=== PATIENT | female | born 1945 | race Caucasian/White ===

== ENCOUNTER 2022-02-25 08:32 | Outpatient (RCR) | payer MEDICARE, BC, SELFPAY ==
[2022-02-25 09:04] VITALS: BP 116/72; PULSE 60; RESP 16; TEMP 36.4; O2SAT 97
== END 2022-03-07 23:59 | disposition home or self-care (01) ==
LOC: CCIC 08:32
PROVIDERS: PCP Surgery; Visit Provider Clinical Nurse Specialist
DX: M06.9 Rheumatoid arthritis, unspecified (principal)
CPT/HCPCS: 96413; 96415; J7050

== ENCOUNTER 2022-08-16 21:11 | Emergency (ER) | payer MEDICARE, BC, SELFPAY ==
[2022-08-16 21:20] VITALS: BP 145/83; PULSE 73; RESP 18; TEMP 36.3; O2SAT 98; BMI 22.9
--- NOTE | 2022-08-16 22:08 | CRLHL7_ITS ---
For Patients: As a result of the Century Cures Act, medical imaging exams and procedure reports are released immediately into your electronic medical record. You may view this report before your referring provider. If you have questions, please contact your health care provider. DATE: 08/16/2022 CLINICAL HISTORY: Patient with dizziness and neck pain. TECHNIQUE: Standard helical CT image acquisition through the intracranial circulation following intravenous administration of contrast material with bolus tracking. Multiplanar reconstructed images were performed and interpreted. COMPARISON: CT same day. FINDINGS: There is no proximal intracranial large vessel occlusion. 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 The right middle cerebral artery and its branches are normal. The right anterior cerebral artery and its branches are normal. The left middle cerebral artery and its branches are normal. The left anterior cerebral artery and its branches are normal. The anterior communicating artery is well visualized and appears normal. The right vertebral artery and PICA are normal. The left vertebral artery and PICA are normal. The vertebral arteries are codominant. The basilar artery is patent and appears normal. The right posterior cerebral artery is normal. The left posterior cerebral artery is normal. The visualized venous structures are patent. IMPRESSION: 1. No proximal intracranial large vessel occlusion. 2. 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 Telehealth consultation with [facility]s Neurointerventional team for management of these aneurysms can be arranged by calling . Please note that all CT scans at this facility use dose modulation, iterative reconstruction, and/or weight-based dosing when appropriate to reduce radiation dose to as low as reasonably achievable. Dictated by Xavier Singh MD @ 08/17/2022 3:49:02 AM (Electronically Signed)
--- NOTE | 2022-08-16 22:08 | CRLHL7_ITS ---
For Patients: As a result of the Century Cures Act, medical imaging exams and procedure reports are released immediately into your electronic medical record. You may view this report before your referring provider. If you have questions, please contact your health care provider. INDICATION: Dizziness with neck pain. TECHNIQUE: CT head without contrast. COMPARISON: None. FINDINGS: CSF spaces: Within normal limits for age. Brain parenchyma and extra-axial spaces: The alston-white differentiation is normal. No sign of mass, hemorrhage, or midline shift. No extra-axial fluid collection. Skull base and calvarium: The visualized paranasal sinuses and mastoid air cells demonstrate no acute or significant findings. The visualized orbits are grossly unremarkable. No skull fractures. IMPRESSION: Unremarkable noncontrast head CT. No sign of ischemia or intracranial hemorrhage. Please note that all CT scans at this facility use dose modulation, iterative reconstruction, and/or weight-based dosing when appropriate to reduce radiation dose to as low as reasonably achievable. Dictated by Jose Enrique Cat MD @ 08/16/2022 11:27:33 PM (Electronically Signed)
--- NOTE | 2022-08-16 22:08 | CRLHL7_ITS ---
For Patients: As a result of the Century Cures Act, medical imaging exams and procedure reports are released immediately into your electronic medical record. You may view this report before your referring provider. If you have questions, please contact your health care provider. DATE: 08/16/2022 CLINICAL HISTORY: Patient with dizziness. TECHNIQUE: Standard helical CT image acquisition of the neck up to the skull base after bolus intravenous contrast enhancement. Multiplanar reconstructed images performed on a separate workstation. COMPARISON: CT same day. FINDINGS: The origins of the great vessels from the aortic arch are patent. The origin of the right vertebral artery is patent. The origin of the left vertebral artery is patent. The common carotid arteries are patent. There is no stenosis at the origin of the right internal carotid artery. There is no stenosis at the origin of the left internal carotid artery. The rest of the cervical segments of the internal carotid arteries are patent up to the skull base. The vertebral arteries are codominant. The cervical segments of the vertebral arteries are patent up to the skull base. The visualized intracranial vasculature is unremarkable. The visualized lung apices are unremarkable. The thyroid gland is unremarkable. The soft tissues of the neck are unremarkable. There are degenerative changes in the cervical spine. IMPRESSION: Normal CT angiogram of the neck. Please note that all CT scans at this facility use dose modulation, iterative reconstruction, and/or weight-based dosing when appropriate to reduce radiation dose to as low as reasonably achievable. Dictated by Xavier Singh MD @ 08/17/2022 3:51:11 AM (Electronically Signed)
[2022-08-16 22:16] LABS: PCR FLU A Negative PCR FLU A (Negative); PCR FLU B Negative PCR FLU B (Negative); PCR RSV Negative PCR RSV (Negative)
[2022-08-16] MEDS: 0.9 % SODIUM CHLORIDE 1000 ml 1,000 ML IV (22:21)
[2022-08-16 22:27] LABS: SARS PCR* Negative SARS-CoV-2 (Negative)
--- NOTE | 2022-08-16 22:38 | ED_ITS ---
HPI - General Adult General Chief complaint: Unspecified Complaint, Adult Stated complaint: light headed, trouble breathing Time Seen by Provider: 08/16/22 21:36 History of Present Illness HPI narrative: 76-year-old woman presenting to the emergency department accompanied by her daughter after lying down around 2 hours ago, lying down to bed on her back and then with sudden onset of dizziness. Eventually got up to the couch, walked there with everything spinning and managed to sit. With further clarification I am able to determine that dizziness was noticeably less when still. Symptoms lessened a great deal in about 30 minutes. Became rather sore at the base of her neck and remains so. Recounts that Mom with what sounds like cerebral hemorrhage; not clearly vertebral artery dissection or similar. Apparently had neck pain or headache. Feels that symptoms probably still worse to lay back; lessened at rest. No fever or cough or cold symptoms to proceed this. No trauma. No focal weakness. No complaint of headache more that base of neck pain. Has never had DVT or PE. Not really with chest pain. Visit initially a little complicated by Ms. Ivey being hard of hearing. Lowering my mask in conversation later helped a good deal. Related Data Home Medications Medication Instructions Recorded Confirmed albuterol sulfate 90 mcg/actuation 2 inh inhalation Q4H PRN 02/25/22 08/16/22 aerosol inhaler amoxicillin 500 mg capsule 2,000 mg PO DIRECTED 02/25/22 08/16/22 atorvastatin 40 mg tablet 40 mg PO DAILY 02/25/22 08/16/22 levothyroxine 88 mcg tablet 88 mcg PO DAILY 02/25/22 08/16/22 (Euthyrox) methotrexate sodium 2.5 mg tablet 22.5 mg PO DIRECTED 02/25/22 08/16/22 folic acid 1 mg tablet 08/16/22 Allergies Allergy/AdvReac Type Severity Reaction Status Date / Time oxycodone [From OxyContin] AdvReac Intermediate Vomiting Verified 08/16/22 23:20 Review of Systems Status of ROS: Reports: 10 or more systems reviewed and unremarkable except as noted in History and below [facility] Medical History Carpal tunnel syndrome Hypothyroid Malignant lung neoplasm Osteoporosis Surgical History S/P lobectomy of lung Social History Smoking Status: Former smoker Do you use any of these nicotine containing products: None Second hand tobacco smoke exposure: No How often do you have a drink containing alcohol: never How often do you have six or more drinks on one occasion: Never AUDIT-C Alcohol total score: 0 Non-prescribed substance use: denies use service: No Exam Narrative: Exam Narrative: Very pleasant. Laughs easily. NAD. Cranial nerves 2-12 are intact though hard of hearing. HINTS is normal. Only subtle dizziness perhaps when goes flat. Not reproducible to rotational head movement while upright. Breathing easily. Head looks to be atraumatic. Oropharynx is a little sticky. Neck is supple with strong and equal carotid upstroke. She is not really tender posterior midline neck but markedly so in the matthew cervical musculature low and into the medial trapezius musculature bilaterally. Lungs are clear but diminished breath sounds throughout the upper left chest. Heart is with a regular rhythm and rate. No murmur rub or gallop. Full strength throughout and well perfused. No extremity edema. No pain to palpation. No Homans. Const: Vital Signs, click to edit/add: Vital Signs - 24 hr 08/16/22 21:20 08/16/22 23:16 08/16/22 23:58 Temperature 97.4 F L Pulse Rate [Pulse Oximeter] 73 83 83 Respiratory Rate 18 16 16 Blood Pressure [Le ft Upper Arm] 145/83 H 128/68 139/58 L Pulse Oximetry 98 97 97 Oxygen Delivery Me thod Room Air Room Air Room Air 08/17/22 01:44 08/17/22 02:00 Temperature Pulse Rate [Pulse Oximeter] 72 Respiratory Rate 18 16 Blood Pressure [Le ft Upper Arm] 144/66 H 138/64 Pulse Oximetry 98 98 Oxygen Delivery Me thod Room Air Room Air Documenting provider has reviewed patient's vital signs: yes Course Vital Signs Vital signs: Initial Vital Signs Temperature 97.4 F L 08/16/22 21:20 Temperature Source Temporal Artery Scan 08/16/22 21:20 Pulse Rate 73 08/16/22 21:20 Pulse Rhythm 08/16/22 21:20 Respiratory Rate 18 08/16/22 21:20 Blood Pressure 145/83 H 08/16/22 21:20 Blood Pressure Mean 103 08/16/22 21:20 Pulse Oximetry 98 08/16/22 21:20 Oxygen Delivery Method 08/16/22 21:20 Vital Signs Temperature 97.4 F L 08/16/22 21:20 Pulse Rate 73 08/16/22 21:20 Respiratory Rate 18 08/16/22 21:20 Blood Pressure 145/83 H 08/16/22 21:20 Pulse Oximetry 98 08/16/22 21:20 Oxygen Delivery Method 08/16/22 21:20 Temperature 97.4 F L 08/16/22 21:20 Pulse Rate 72 08/17/22 01:44 Respiratory Rate 16 08/17/22 02:00 Blood Pressure 138/64 08/17/22 02:00 Pulse Oximetry 98 08/17/22 02:00 Oxygen Delivery Method 08/17/22 02:00 Medical Decision Making MDM Narrative Medical decision making narrative: Labs were reassuring. My initial understanding that this dizziness was fairly constant and not relieved at rest I think warrants CT imaging and vascular evaluation. Ordered for noncontrast head CT and CTA head and neck. I do not see evidence of bleed. Radiology over-read not noting any vascular anomaly within the limitations of study. This was a preliminary read interpretation that I discussed with on my call to Neurology on-call through [facility]. These images were sent up for review to on-call as well. Suspected to be peripheral process and unlikely central. Did review that dizziness symptoms abated at rest. During majority of time in the emergency department was symptom free and appeared to be ambulating easily multiple times to the bathroom. Final read of some of the imaging now available as below which I will convey to Ms. Ivey her daughter. IMPRESSION: 1. No proximal intracranial large vessel occlusion. 2. 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 Telehealth consultation with [facility]`s Neurointerventional team for management of these aneurysms can be arranged by calling . I have contacted above number and also reached Ms. Ivey. I am anticipating her calling back to Neuroradiology imminently to schedule follow-up appointment. Ms. Ivey clarifies at this time that her mother had an aneurysm as well. Lab Data Lab results reviewed: Yes I reviewed the patient's lab results Labs: Lab Results 08/16/22 08/16/22 08/16/22 Range/Units 21:25 22:06 22:20 WBC 7.30 (4.50-11.00) K/uL RBC 3.98 L (4.00-5.20) m/uL Hgb 12.9 (12.0-16.0) gm/dL Hct 38.3 (33.0-51.0) % MCV 96 (80-100) fL MCH 32 (26-34) pg MCHC 34 (32-36) gm/dL RDW Coeff of Chaparrita 14.4 (11.5-15.5) % Plt Count 203 (140-440) K/uL Neut % (Auto) 45.2 (42.0-72.0) % Lymph % (Auto) 41.4 (20-44) % Haralson % (Auto) 9.9 (0.0-11.0) % Eos % (Auto) 2.6 (0.0-7.0) % Baso % (Auto) 0.8 (0.0-3.0) % Neut # (Auto) 3.30 (1.7-7.0) K/uL Lymph # (Auto) 3.02 H (0.90-2.90) K/uL Haralson # (Auto) 0.70 (0.00-0.90) K/UL Eos # (Auto) 0.19 (0.00-0.50) K/uL Baso # (Auto) 0.06 (0.00-0.30) K/uL INR (0.91-1.10) APTT (23-33) Seconds Sodium (135-149) mmol/L Potassium (3.6-5.1) mmol/L Chloride (96-114) mmol/L Carbon Dioxide (20-32) mmol/L BUN (7-30) mg/dL Creatinine (0.5-1.5) mg/dL Estimated Creat Clear Estimated GFR ml/min Glucose (60-115) mg/dL Calcium (8.4-10.6) mg/dL Magnesium (1.5-2.6) mg/dL Total Bilirubin (0.1-1.5) mg/dL Direct Bilirubin (0.0-0.5) mg/dL AST (12-35) U/L ALT (4-35) U/L Alkaline Phosphatase (40-150) U/L Troponin I (0.01-0.04) ng/mL C-Reactive Protein (0.5-1.0) mg/dL NT-Pro-B Natriuret Pep pg/mL Total Protein (6.0-8.3) g/dL Albumin (3.3-5.0) g/dL SARS-CoV-2 (PCR) Negative SARS-CoV-2 (Negative) Influenza Type A (PCR) Negative PCR FLU A (Negative) Influenza Type B (PCR) Negative PCR FLU B (Negative) RSV (PCR) Negative PCR RSV (Negative) POC Troponin I 0.00 L (0.01-0.04) ng/ml 08/16/22 08/16/22 Range/Units 22:20 22:20 WBC (4.50-11.00) K/uL RBC (4.00-5.20) m/uL Hgb (12.0-16.0) gm/dL Hct (33.0-51.0) % MCV (80-100) fL MCH (26-34) pg MCHC (32-36) gm/dL RDW Coeff of Chaparrita (11.5-15.5) % Plt Count (140-440) K/uL Neut % (Auto) (42.0-72.0) % Lymph % (Auto) (20-44) % Haralson % (Auto) (0.0-11.0) % Eos % (Auto) (0.0-7.0) % Baso % (Auto) (0.0-3.0) % Neut # (Auto) (1.7-7.0) K/uL Lymph # (Auto) (0.90-2.90) K/uL Haralson # (Auto) (0.00-0.90) K/UL Eos # (Auto) (0.00-0.50) K/uL Baso # (Auto) (0.00-0.30) K/uL INR 0.98 (0.91-1.10) APTT 29 (23-33) Seconds Sodium 140 (135-149) mmol/L Potassium 3.6 (3.6-5.1) mmol/L Chloride 106 (96-114) mmol/L Carbon Dioxide 30 (20-32) mmol/L BUN 22 (7-30) mg/dL Creatinine 0.6 (0.5-1.5) mg/dL Estimated Creat Clear 39.04 Estimated GFR 94 ml/min Glucose 88 (60-115) mg/dL Calcium 9.5 (8.4-10.6) mg/dL Magnesium 2.0 (1.5-2.6) mg/dL Total Bilirubin 0.5 (0.1-1.5) mg/dL Direct Bilirubin 0.2 (0.0-0.5) mg/dL AST 38 H (12-35) U/L ALT 30 (4-35) U/L Alkaline Phosphatase 81 (40-150) U/L Troponin I < 0.01 L (0.01-0.04) ng/mL C-Reactive Protein < 0.5 L (0.5-1.0) mg/dL NT-Pro-B Natriuret Pep 170 pg/mL Total Protein 7.4 (6.0-8.3) g/dL Albumin 4.0 (3.3-5.0) g/dL SARS-CoV-2 (PCR) (Negative) Influenza Type A (PCR) (Negative) Influenza Type B (PCR) (Negative) RSV (PCR) (Negative) POC Troponin I (0.01-0.04) ng/ml ECG Data Attestation: I personally reviewed and interpreted this ECG as follows: (Normal sinus rate of 75) Discharge Plan Discharge Clinical Impression: Vertigo, Aneurysm of internal carotid artery Patient Disposition: Home w/ Parent or Adult Condition: Improved Additional Instructions: Stay well-hydrated. Take care in transitions, moving more slowly in the short term. Continue to take your aspirin at this time. Return for persistent recurrence of symptoms, new and focal weakness, visual changes. I know it can be difficult to get in to be seen nowadays; I would call tomorrow to set up a follow-up appointment ideally within the next week or 2 with your primary care provider. I spoke to Neurology on-call through [facility] this evening. Prescriptions: No Action albuterol sulfate 90 mcg/actuation HFA aerosol inhaler 2 inh INHALATION Q4H PRN Label Comments: INHALE 1 TO 2 PUFFS BY MOUTH EVERY 4 HOURS NEEDED amoxicillin 500 mg capsule 2,000 mg PO DIRECTED Label Comments: TAKE FOUR CAPSULES BY MOUTH ONE HOUR BEFORE APPOINTMENT atorvastatin 40 mg tablet 40 mg PO DAILY Label Comments: TAKE 1 TABLET BY MOUTH ONCE DAILY levothyroxine [Euthyrox] 88 mcg tablet 88 mcg PO DAILY Label Comments: TAKE 1 TABLET BY MOUTH BEFORE BREAKFAST methotrexate sodium 2.5 mg tablet 22.5 mg PO DIRECTED Label Comments: TAKE 9 TABLETS BY MOUTH ONCE A WEEK folic acid 1 mg tablet Label Comments: TAKE 2 TABLETS BY MOUTH IN THE MORNING Follow Up/Referrals: Paco Lynch MD [Primary Care Provider] - Stand Alone Forms: [employer] Info Instructions
[2022-08-16 22:40] LABS: Basophils Absolute Auto 0.06 K/uL (0.00-0.30); Basophils Percent Auto 0.8 % (0.0-3.0); Eosinophils Absolute Auto 0.19 K/uL (0.00-0.50); Eosinophils Percent Auto 2.6 % (0.0-7.0); Hematocrit 38.3 % (33.0-51.0); Hemoglobin* 12.9 gm/dL (12.0-16.0); Immature Granulocytes Abs Auto 0.01 K/uL (0.00-0.30); Immature Granulocytes Pct Auto 0.1 %; Lymphocytes Absolute Auto 3.02 K/uL (0.90-2.90); Lymphocytes Percent Auto 41.4 % (20-44); Mean Corpuscular HGB Conc 34 gm/dL (32-36); Mean Corpuscular Hemoglobin 32 pg (26-34); Mean Corpuscular Volume 96 fL (80-100); Monocytes Percent Auto 9.9 % (0.0-11.0); Neutrophils Percent Auto 45.2 % (42.0-72.0); Platelet Count* 203 K/uL (140-440); RDW Coefficient of Variation % 14.4 % (11.5-15.5); Red Blood Count 3.98 m/uL (4.00-5.20)
[2022-08-16 22:47] LABS: Slide Review Reflex No
[2022-08-16 23:14] LABS: Chloride* 106 mmol/L (96-114); Sodium* 140 mmol/L (135-149)
[2022-08-16 23:15] LABS: Potassium* 3.6 mmol/L (3.6-5.1)
[2022-08-16 23:16] VITALS: BP 128/68; PULSE 83; RESP 16; O2SAT 97
[2022-08-16 23:17] LABS: Bilirubin Direct* 0.2 mg/dL (0.0-0.5); Bilirubin Total* 0.5 mg/dL (0.1-1.5); Carbon Dioxide* 30 mmol/L (20-32); Creatinine* 0.6 mg/dL (0.5-1.5); Est. Creatinine Clearance* 39.04; Estimated Glomerular Filt Rate 94 ml/min; Total Protein* 7.4 g/dL (6.0-8.3)
[2022-08-16 23:18] LABS: Alanine Aminotransferase* 30 U/L (4-35); Alkaline Phosphatase* 81 U/L (40-150); Aspartate Amino Transferase* 38 U/L (12-35); Blood Urea Nitrogen* 22 mg/dL (7-30); Calcium* 9.5 mg/dL (8.4-10.6); Glucose* 88 mg/dL (60-115)
[2022-08-16 23:24] LABS: INR 0.98 (0.91-1.10); Partial Thromboplastin Time* 29 Seconds (23-33); Prothrombin Time 13.6 Seconds
[2022-08-16 23:41] LABS: C Reactive Protein* < 0.5 mg/dL (0.5-1.0); NT Pro B Type NatriureticPept* 170 pg/mL; Troponin I* < 0.01 ng/mL (0.01-0.04)
[2022-08-16 23:58] VITALS: BP 139/58; PULSE 83; RESP 16; O2SAT 97
[2022-08-17 01:44] VITALS: BP 144/66; PULSE 72; RESP 18; O2SAT 98
[2022-08-17 02:00] VITALS: BP 138/64; RESP 16; O2SAT 98
== END 2022-08-17 02:46 | disposition home or self-care (01) ==
PROVIDERS: Emergency Provider Family Medicine; PCP Surgery
DX: R42 Dizziness and giddiness (principal); I72.0 Aneurysm of carotid artery
CPT/HCPCS: 36415; 70450; 70496; 70498; 80048; 80076; 83735; 83880; 84484; 85025; 85610; 85730; 86140; 87502; 87634; 87635; 93005; 96360; 96361; 99284; 99285; J7030; Q9967

== ENCOUNTER 2022-10-07 08:30 | Outpatient (RCR) | payer MEDICARE, BC, SELFPAY ==
--- NOTE | 2022-04-15 12:27 | ONC.NURNOTE ---
Authorization: User: Elena Kamara Date: 09/09/21 11:26 Type: Eligibility Determination Note... Received request for prior auth for Infiximab([id number]). Prior auth is not required as services are based on medical necessity and follow medicare guidelines.
[2022-04-22 08:38] VITALS: BP 115/71; PULSE 67; RESP 16; TEMP 36.6; O2SAT 99
[2022-04-22] MEDS: diphenhydrAMINE 25 MG CAPSULE PO (08:50)
[2022-04-22] MEDS: ACETAMINOPHEN 325 MG TABLET 650 MG PO (08:50)
[2022-04-22] MEDS: 0.9 % SODIUM CHLORIDE 250 ml 250 ML 35 ML IV (09:26)
[2022-06-17 08:28] VITALS: BP 114/78; PULSE 81; RESP 16; TEMP 36.7; O2SAT 98
[2022-06-17] MEDS: diphenhydrAMINE 25 MG CAPSULE PO (08:42)
[2022-06-17] MEDS: ACETAMINOPHEN 325 MG TABLET 650 MG PO (08:42)
[2022-08-12 08:30] VITALS: BP 99/60; PULSE 93; RESP 16; TEMP 36.3; O2SAT 98
[2022-08-12] MEDS: diphenhydrAMINE 25 MG CAPSULE PO (08:40)
[2022-08-12] MEDS: ACETAMINOPHEN 325 MG TABLET 650 MG PO (08:40)
[2022-08-12] MEDS: 0.9 % SODIUM CHLORIDE 250 ml 250 ML 30 ML IV (08:53)
--- NOTE | 2022-08-24 12:51 | URNOTE ---
Request received for authorization for Infliximab ([id number]). Prior authorization is not required as services are based on medical necessity and follow Medicare guidelines.
[2022-09-21 13:10] VITALS: BP 112/67; PULSE 66; RESP 16; TEMP 36.9; O2SAT 97
[2022-09-21] MEDS: diphenhydrAMINE 25 MG CAPSULE PO (13:18)
[2022-09-21] MEDS: ACETAMINOPHEN 325 MG TABLET 650 MG PO (13:18)
== END 2022-10-19 23:59 | disposition home or self-care (01) ==
LOC: CCIC 08:30
PROVIDERS: PCP Surgery; Referring Provider Surgery; Visit Provider Clinical Nurse Specialist
DX: M06.9 Rheumatoid arthritis, unspecified (principal)
CPT/HCPCS: 96413; 96415; A9270; J7050

== ENCOUNTER 2023-03-11 09:30 | Outpatient (RCR) | payer MEDICARE, BC, SELFPAY ==
[2022-11-19 08:15] VITALS: BP 102/49; PULSE 66; RESP 16; TEMP 35.9; O2SAT 97
[2022-11-19] MEDS: ACETAMINOPHEN 325 MG TABLET 650 MG PO (08:25)
[2022-11-19] MEDS: diphenhydrAMINE 25 MG CAPSULE PO (08:25)
[2023-01-14 08:01] VITALS: BP 98/61; PULSE 63; RESP 16; TEMP 36.3; O2SAT 98
[2023-01-14] MEDS: ACETAMINOPHEN 325 MG TABLET 650 MG PO (08:18)
[2023-01-14] MEDS: diphenhydrAMINE 25 MG CAPSULE PO (08:19)
[2023-01-14] MEDS: 0.9 % SODIUM CHLORIDE 250 ml 250 ML 30 ML IV (08:24)
[2023-03-11 09:33] VITALS: BP 104/71; PULSE 66; RESP 16; TEMP 36.7; O2SAT 96
[2023-03-11] MEDS: ACETAMINOPHEN 325 MG TABLET 650 MG PO (10:04)
[2023-03-11] MEDS: diphenhydrAMINE 25 MG CAPSULE PO (10:04)
[2023-03-11 12:50] VITALS: BP 115/67; PULSE 66; RESP 16; TEMP 36.8; O2SAT 96
== END 2023-05-18 23:59 | disposition home or self-care (01) ==
LOC: CCIC 09:30
PROVIDERS: PCP Surgery; Referring Provider Surgery; Visit Provider Clinical Nurse Specialist
DX: M06.9 Rheumatoid arthritis, unspecified (principal)
CPT/HCPCS: 96413; 96415; A9270; J7050

== ENCOUNTER 2023-05-27 13:01 | Outpatient (CLI) | payer MEDICARE, BC, SELFPAY | END 2023-05-27 13:02 | disposition home or self-care (01) | LOC: NFLDREF 05-30 11:59 | PROVIDERS: PCP Surgery; Referring Provider Surgery; Visit Provider Physician Assistant | DX: R30.0 Dysuria (principal); N39.0 Urinary tract infection, site not specified | CPT/HCPCS: 87086 ==

== ENCOUNTER 2023-11-10 08:00 | Outpatient (RCR) | payer MEDICARE, BC, SELFPAY ==
[2023-05-19 11:00] VITALS: BP 111/69; PULSE 66; RESP 16; TEMP 36.2; O2SAT 98
[2023-05-19] MEDS: diphenhydrAMINE 25 MG CAPSULE PO (11:05)
[2023-05-19] MEDS: ACETAMINOPHEN 325 MG TABLET 650 MG PO (11:05)
[2023-05-19] MEDS: 0.9 % SODIUM CHLORIDE 250 ml 250 ML 35 ML IV (11:18)
[2023-07-14 08:06] VITALS: BP 113/69; PULSE 70; RESP 16; TEMP 36.6; O2SAT 99
[2023-07-14] MEDS: diphenhydrAMINE 25 MG CAPSULE PO (08:28)
[2023-07-14] MEDS: ACETAMINOPHEN 325 MG TABLET 650 MG PO (08:28)
[2023-07-14] MEDS: 0.9 % SODIUM CHLORIDE 250 ml 250 ML 35 ML IV (08:59)
--- NOTE | 2023-09-05 12:33 | ONC.NURNOTE ---
Addendum entered by Devora Chang RN 09/06/23 13:46: Dr. Lynch called office today asking for below explanation. He will write the orders since neonatal doctor will not write and send. Addendum entered by Devora Chang RN 09/06/23 12:19: Patient was notified of inability to find a provider to order her medication. She was instructed to let [facility] know if she has better luck with providers. Addendum entered by Devora Chang RN 09/06/23 10:07: PCP does not want to write orders for patient from Rheumatology note. [facility] staff reached out to [facility] to ask for order that will be signed by our staff. The office notes that they do not sports writer orders for outside infusion centers. They will not send their orders, or a recommendation letter either. Asked that they send last labs and consultation note to see if [facility] can find someone to write the orders. They will discuss with the provider to see if he is willing to do this. Original Note: Microbiology Technologist called for new orders fro [facility], also let [facility] know that we took her off the schedule on 09/08/2023. Will call and reschedule once we get her new order and P.A., [facility] is aware of this issue.
--- NOTE | 2023-09-08 10:25 | URNOTE ---
Request received for authorization for Infliximab ([id number]). Prior authorization is not required as services are based on medical necessity and follow Medicare guidelines.
[2023-09-15 08:55] VITALS: BP 133/58; PULSE 74; RESP 16; TEMP 36; O2SAT 98
[2023-09-15] MEDS: ACETAMINOPHEN 325 MG TABLET 650 MG PO (08:59)
[2023-09-15] MEDS: diphenhydrAMINE 25 MG CAPSULE PO (08:59)
[2023-09-15] MEDS: 0.9 % SODIUM CHLORIDE 250 ml 250 ML 35 ML IV (08:59)
[2023-11-10 08:03] VITALS: BP 118/61; PULSE 72; RESP 16; TEMP 35.9; O2SAT 97
[2023-11-10] MEDS: ACETAMINOPHEN 325 MG TABLET 650 MG PO (08:09)
[2023-11-10] MEDS: diphenhydrAMINE 25 MG CAPSULE PO (08:09)
[2023-11-10] MEDS: 0.9 % SODIUM CHLORIDE 250 ml 250 ML 35 ML IV (08:47)
== END 2023-11-15 23:59 | disposition home or self-care (01) ==
LOC: CCIC 08:00
PROVIDERS: PCP Surgery; Referring Provider Surgery; Visit Provider Clinical Nurse Specialist
DX: M06.9 Rheumatoid arthritis, unspecified (principal)
CPT/HCPCS: 96365; 96366; 96413; 96415; A9270; J7050

== ENCOUNTER 2024-01-28 15:35 | Emergency (ER) | payer MEDICARE, BC, SELFPAY ==
[2024-01-28 15:46] VITALS: BP 114/74; PULSE 68; RESP 16; TEMP 36.2; O2SAT 98; BMI 22.1
--- NOTE | 2024-01-28 16:01 | ED.GENADULT ---
HPI - General Adult General Chief complaint: Post Op Complication Stated complaint: Surgery on , would like to check for infection Time Seen by Provider: 01/28/24 15:37 History of Present Illness HPI narrative: [age] year white female with a finger that is postop about a month and has been reddened over the last couple of days, it is swollen over the PIP and D IP joint and the mid phalanx diffusely. She has been still in she had a comminuted fracture of her proximal phalanx and mid phalanx knuckle. She had been doing pretty well in the last couple days on see more reddened and swollen. She does have a lot of pain. Has not had fever, no chills. She is afebrile here today. She is up-to-date on her tetanus as of 2021. She had her surgery done at [facility] by a on the line a orthopedist. Related Data Home Medications ?Medication ?Instructions ?Recorded ?Confirmed atorvastatin 40 mg tablet 40 mg PO DAILY 02/25/22 01/28/24 levothyroxine 88 mcg tablet 88 mcg PO DAILY 02/25/22 01/28/24 (Euthyrox) methotrexate sodium 2.5 mg tablet 15 mg PO DIRECTED 02/25/22 01/28/24 folic acid 1 mg tablet 1 mg 08/16/22 05/27/23 aspirin 81 mg tablet,delayed 81 mg PO QDAY 05/27/23 01/28/24 release (Adult Low Dose Aspirin) Allergies Allergy/AdvReac Type Severity Reaction Status Date / Time oxycodone [From OxyContin] AdvReac Intermediate Vomiting Verified 01/28/24 15:46 Review of Systems Status of ROS: Reports: 6 or more systems reviewed and unremarkable except as noted in History and below [facility] Medical History Malignant lung neoplasm ?C34.90 - Malignant neoplasm of unspecified part of unspecified bronchus or lung (ICD-10) Carpal tunnel syndrome ?G56.00 - Carpal tunnel syndrome, unspecified upper limb (ICD-10) Osteoporosis ?M81.0 - Age-related osteoporosis without current pathological fracture (ICD-10) Hypothyroid ?E03.9 - Hypothyroidism, unspecified (ICD-10) Surgical History 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 - Acquired absence of lung [part of] (ICD-10) Social History Smoking Status: Former smoker Do you use any of these nicotine containing products: None Second hand tobacco smoke exposure: No How often do you have a drink containing alcohol: never How often do you have six or more drinks on one occasion: Never AUDIT-C Alcohol total score: 0 Non-prescribed substance use: denies use service: No Exam Narrative: Exam Narrative: Objective: The patient's vital signs look within normal limits She is alert or x3 no distress Her long finger that has the pins in place look swollen diffusely there is no drainage but there is erythema it is swollen from mid proximal phalanx to the did D IP joint area. There is no fluctuance that I can palpate she has got limited range of motion. This has been since the surgery. She had some Steri-Strips over the wound. There is no drainage as mention and no fluctuance. Const: Vital Signs, click to edit/add: Vital Signs - 24 hr 01/28/24 15:46 01/28/24 16:35 Temperature 97.1 F L Pulse Rate [Pulse Oximeter] 68 Respiratory Rate 16 20 Blood Pressure [Ri ght Upper Arm] 114/74 126/71 Pulse Oximetry 98 98 Oxygen Delivery Me thod Room Air Room Air Course Vital Signs Vital signs: Initial Vital Signs Temperature 97.1 F L 01/28/24 15:46 Temperature Source Temporal Artery Scan 01/28/24 15:46 Pulse Rate 68 01/28/24 15:46 Respiratory Rate 16 01/28/24 15:46 Blood Pressure 114/74 01/28/24 15:46 Blood Pressure Mean 87 01/28/24 15:46 Blood Pressure Position Sitting 01/28/24 15:46 Pulse Oximetry 98 01/28/24 15:46 Oxygen Delivery Method Room Air 01/28/24 15:46 Vital Signs Temperature 97.1 F L 01/28/24 15:46 Pulse Rate 68 01/28/24 15:46 Respiratory Rate 16 01/28/24 15:46 Blood Pressure 114/74 01/28/24 15:46 Pulse Oximetry 98 01/28/24 15:46 Oxygen Delivery Method Room Air 01/28/24 15:46 Temperature 97.1 F L 01/28/24 15:46 Pulse Rate 68 01/28/24 15:46 Respiratory Rate 20 01/28/24 16:35 Blood Pressure 126/71 01/28/24 16:35 Pulse Oximetry 98 01/28/24 16:35 Oxygen Delivery Method Room Air 01/28/24 16:35 Medications Administered Medications: Discontinued Medications Generic Name Dose Route Start Last Admin Trade Name Freshirley PRN Reason Stop Dose Admin Ceftriaxone Sodium 1 gm 01/28/24 15:57 01/28/24 16:14 Ceftriaxone 1 Gm Vial IM 01/28/24 15:58 1 gm ONCE ONE Administration Lidocaine HCl 2.1 ml 01/28/24 15:57 01/28/24 16:16 Lidocaine 1% 5 Ml (Pf) 5 Ml Vial IM 2.1 ml DIRECTED PRN Administration Pain Medical Decision Making MDM Narrative Medical decision making narrative: [age] white female with a finger infection postoperatively, patient still has pins in place. At this point however she has not been on antibiotics. She does appear to be up-to-date on tetanus as of 2021, she does not have what appears to be abscess or drainage. I think it be reasonable to cover with antibiotics and see if this would improve. I would recommend careful follow up though with and prompt follow-up with her orthopedic surgeon on Tuesday which is a day and a half from now to insure that the pins do not need to be removed and she does not need any further surgical treatment. And to ensure that the fingers improving with antibiotic care. Would give her Rocephin 1 g IM and then Augmentin 875 b.i.d. x7 days, and soak the finger were copiously in warm soapy water and are recheck with surgeon as described. She and her daughter were comfortable plan. Understands there may be additional treatments needed per surgeon. Again I do not think they have to do this immediately but given she has not been on antibiotics and this just started so I think a trial of antibiotic would be appropriate but may need pins removed other surgical treatments as described to the family . If the finger would look worse tomorrow or at any time start hurting, I would recommend they be seen by the orthopedic facility that did their surgery. There and agreement with that. Discharge Plan Discharge Clinical Impression: Finger infection Patient Disposition: Home w/ Parent or Adult Condition: Stable Additional Instructions: Warm soaks in soapy water 5 times a day, recommend antibiotic injection and oral antibiotic as prescribed. Recommend you see the surgeon within the next day, would recommend they be seen Tuesday. May need further surgical treatment if it is not improving. Activity Level: Light activity Discharge Diet: Regular Prescriptions: No Action aspirin [Adult Low Dose Aspirin] 81 mg tablet,delayed release (DR/EC) 81 mg PO QDAY atorvastatin 40 mg tablet 40 mg PO DAILY Patient Comments: TAKE 1 TABLET BY MOUTH ONCE DAILY levothyroxine [Euthyrox] 88 mcg tablet 88 mcg PO DAILY Patient Comments: TAKE 1 TABLET BY MOUTH BEFORE BREAKFAST methotrexate sodium 2.5 mg tablet 15 mg PO DIRECTED Patient Comments: TAKE 7 TABLETS BY MOUTH ONCE A WEEK folic acid 1 mg tablet 1 mg Patient Comments: TAKE 2 TABLETS BY MOUTH IN THE MORNING Follow Up/Referrals: Paco Lynch MD [Primary Care Provider] - Stand Alone Forms: [employer] Info Instructions
[2024-01-28] MEDS: cefTRIAXone 1 GM VIAL IM (16:14)
[2024-01-28] MEDS: LIDOCAINE 1% 5 ml (pf) 5 ML VIAL 2.1 ML IM (16:16)
[2024-01-28 16:35] VITALS: BP 126/71; RESP 20; O2SAT 98
== END 2024-01-28 16:35 | disposition home or self-care (01) ==
PROVIDERS: Emergency Provider Family Medicine; PCP Surgery
DX: T81.49XA Infection following a procedure, other surgical site, initial encounter (principal)
CPT/HCPCS: 96372; 99283; J0696

== ENCOUNTER 2024-02-19 13:58 | Emergency (ER) | payer MEDICARE, BC, SELFPAY ==
[2024-02-19 14:38] VITALS: BP 102/56; PULSE 70; RESP 20; TEMP 36.2; O2SAT 97
--- NOTE | 2024-02-19 15:28 | ED_ITS ---
HPI - General Adult General Chief complaint: Unspecified Complaint, Adult Stated complaint: L middle finger injury Time Seen by Provider: 02/19/24 14:00 History of Present Illness HPI narrative: Patient is a 78 year white female who had pins removed from her left long finger and had an I&D done with an infection after she had a fracture. She has done well she had sutures out this week and or last couple of days she has noticed increased redness again in her 5th finger. It is not as painful as it was before but it is red like it was infected. She has follow-up with OT on . She is up-to-date on tetanus. She is on methotrexate for rheumatoid arthritis. Related Data Home Medications ?Medication ?Instructions ?Recorded ?Confirmed atorvastatin 40 mg tablet 40 mg PO DAILY 02/25/22 01/28/24 levothyroxine 88 mcg tablet 88 mcg PO DAILY 02/25/22 01/28/24 (Euthyrox) methotrexate sodium 2.5 mg tablet 15 mg PO DIRECTED 02/25/22 01/28/24 folic acid 1 mg tablet 1 mg 08/16/22 05/27/23 aspirin 81 mg tablet,delayed 81 mg PO QDAY 05/27/23 01/28/24 release (Adult Low Dose Aspirin) Allergies Allergy/AdvReac Type Severity Reaction Status Date / Time oxycodone [From OxyContin] AdvReac Intermediate Vomiting Verified 01/28/24 15:46 Review of Systems Status of ROS: Reports: 6 or more systems reviewed and unremarkable except as noted in History and below [facility] Medical History Malignant lung neoplasm ?C34.90 - Malignant neoplasm of unspecified part of unspecified bronchus or lung (ICD-10) Carpal tunnel syndrome ?G56.00 - Carpal tunnel syndrome, unspecified upper limb (ICD-10) Osteoporosis ?M81.0 - Age-related osteoporosis without current pathological fracture (ICD- 10) Hypothyroid ?E03.9 - Hypothyroidism, unspecified (ICD-10) Surgical History 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 Distal CMS intact, range of motion is limited at the PIP joint. Const: Vital Signs, click to edit/add: Vital Signs - 24 hr 02/19/24 14:38 Temperature 97.2 F L Pulse Rate [Right Pulse Oximeter] 70 Respiratory Rate 20 Blood Pressure [Ri ght Upper Arm] 102/56 L Pulse Oximetry 97 Oxygen Delivery Me thod Room Air Course Vital Signs Vital signs: Initial Vital Signs Temperature 97.2 F L 02/19/24 14:38 Temperature Source Temporal Artery Scan 02/19/24 14:38 Pulse Rate 70 02/19/24 14:38 Respiratory Rate 20 02/19/24 14:38 Blood Pressure 102/56 L 02/19/24 14:38 Blood Pressure Mean 71 02/19/24 14:38 Blood Pressure Position Sitting 02/19/24 14:38 Pulse Oximetry 97 02/19/24 14:38 Oxygen Delivery Method Room Air 02/19/24 14:38 Vital Signs Temperature 97.2 F L 02/19/24 14:38 Pulse Rate 70 02/19/24 14:38 Respiratory Rate 20 02/19/24 14:38 Blood Pressure 102/56 L 02/19/24 14:38 Pulse Oximetry 97 02/19/24 14:38 Oxygen Delivery Method Room Air 02/19/24 14:38 Temperature 97.2 F L 02/19/24 14:38 Pulse Rate 70 02/19/24 14:38 Respiratory Rate 20 02/19/24 14:38 Blood Pressure 102/56 L 02/19/24 14:38 Pulse Oximetry 97 02/19/24 14:38 Oxygen Delivery Method Room Air 02/19/24 14:38 Medications Administered Medications: Discontinued Medications Generic Name Dose Route Start Last Admin Trade Name Freq PRN Reason Stop Dose Admin Ceftriaxone Sodium 500 mg 02/19/24 15:26 02/19/24 15:39 Ceftriaxone 500 Mg Vial IM 02/19/24 15:27 500 mg ONCE ONE Administration Lidocaine HCl 1 ml 02/19/24 15:26 02/19/24 15:39 Lidocaine 1% 5 Ml (Pf) 5 Ml Vial IM 1 ml DIRECTED PRN Administration Pain Medical Decision Making MDM Narrative Medical decision making narrative: [age] white female and methotrexate with mild immune suppression with recurrent finger infection. At this point it has only been a couple of days I think we can try injection Rocephin 500 IM and Augmentin 875 b.i.d. times 10 days, warm soaks in soapy water workup sponge with her hand. Recommend follow- up with orthopedic doctor next 2 3 days because of it is not improving may need I and D again. She and her daughter were comfortable plan. She reports she is up-to-date on tetanus. Augmentin dispensed out of in see med Discharge Plan Discharge Clinical Impression: Post-operative infection Patient Disposition: Home w/ Parent or Adult Condition: Stable Additional Instructions: Rocephin shot now, start Augmentin 875 b.i.d. times 10 days, recommend follow-up with orthopedic doctor within next 2-3 days for reassessment. Activity Level: Light activity Discharge Diet: Regular Prescriptions: No Action aspirin [Adult Low Dose Aspirin] 81 mg tablet,delayed release (DR/EC) 81 mg PO QDAY atorvastatin 40 mg tablet 40 mg PO DAILY Patient Comments: TAKE 1 TABLET BY MOUTH ONCE DAILY levothyroxine [Euthyrox] 88 mcg tablet 88 mcg PO DAILY Patient Comments: TAKE 1 TABLET BY MOUTH BEFORE BREAKFAST methotrexate sodium 2.5 mg tablet 15 mg PO DIRECTED Patient Comments: TAKE 7 TABLETS BY MOUTH ONCE A WEEK folic acid 1 mg tablet 1 mg Patient Comments: TAKE 2 TABLETS BY MOUTH IN THE MORNING Follow Up/Referrals: Paco Lynch MD [Primary Care Provider] - Stand Alone Forms: [employer] Info Instructions
[2024-02-19] MEDS: cefTRIAXone 500 MG VIAL IM (15:39)
[2024-02-19] MEDS: LIDOCAINE 1% 5 ml (pf) 5 ML VIAL 1 ML IM (15:39)
--- OUTSIDE RECORDS SUMMARY | 2024-02-19 15:40 | XMS_ITS | Clinical Summary ---
Author Organization [facility] Address [place], [place] [address] Care Team Providers Care Esthetic Dermatologist Name Role Phone Deangelo Heaton MD Unavailable [phone] Paco Lynch MD Primary Care Provider [phone] Osman Suarez MD Unavailable [phone] Allergies Active Allergy Reactions Criticality Noted Date Comments Oxycodone Vomiting 11/27/2021 Medications Medication Sig Dispensed Refills Start Date End Date Status multivitamin folic acid 0.4 mg Take 1 Tablet by mouth once daily. Contains 0.4 mg of Folic Acid. 0 7 Active methotrexate (RHEUMATREX) 2.5 mg tablet Take 15 mg by mouth once weekly. Takes on Fridays Patient is taking 6 tablets Active inFLIXimab (Remicade) 100 mg injectionIndicatio ns:Rheumatoid arthritis, involving unspecified site, unspecified whether rheumatoid factor present (HC) 200 mg q 8 weeks 20 mL 3 Active albuterol HFA (PRO-AIR; VENTOLIN; PROVENTIL) 90 mcg/actuation inhalerIndications :DEGROOT (dyspnea on exertion) Inhale 1 Puff by mouth every 4 hours if needed for Shortness Of Breath. 9 g 1 3 Active atorvastatin (LIPITOR) 40 mg tabletIndications: Hyperlipidemia, unspecified hyperlipidemia type Take 1 Tablet (40 mg) by mouth once daily. 90 Tablet 2 3 Active levothyroxine (SYNTHROID) 88 mcg tabletIndications: Acquired hypothyroidism Take 1 Tablet (88 mcg) by mouth before breakfast. 90 Tablet 3 4 Active acetaminophen (TYLENOL EXTRA STRGTH) 500 mg tablet Take 1,000 mg by mouth 3 times daily if needed. Max acetaminophen dose: 4000mg in 24 hrs. Active aspirin (ECOTRIN) 81 mg enteric coated tablet Take 81 mg by mouth once daily with a meal. Active calcium carbonate-cholecal ciferol, 600mg-200 units, (CALTRATE-600 + VIT D) tablet Take 2 Tablets by mouth once daily with a meal. Active folic acid 1 mg tablet Take 2 mg by mouth once daily. Active HYDROcodone-acetam inophen (5-325 mg/tablet)Indicati ons:Finger infection Take 1 Tablet by mouth every 6 hours if needed for Pain. Max acetaminophen dose: 4000 mg in 24 hrs. 12 Tablet 4 Active folic acid 1 mg tablet Take 2 mg by mouth once daily. 0 6 024 Discontinued( Pharmacist change per medication history (E-cancel not sent)) cholecalciferol, Vitamin D3, 2,000 unit tablet Take 2,000 units by mouth once daily. 024 Discontinued( Pharmacist change per medication history (E-cancel not sent)) calcium carbonate (OS-JEFFERSON 500) 500 mg calcium (1,250 mg) tablet Take 500 mg by mouth 2 times daily with meals. 024 Discontinued( Pharmacist change per medication history (E-cancel not sent)) acetaminophen (TYLENOL EXTRA STRGTH) 500 mg tabletIndications: Closed fracture of proximal end of left humerus with routine healing, unspecified fracture morphology, subsequent encounter Take 2 Tablets (1,000 mg) by mouth 3 times daily. Max acetaminophen dose: 4000mg in 24 hrs. 90 Tablet 2 024 Discontinued( Pharmacist change per medication history (E-cancel not sent)) aspirin (ECOTRIN) 81 mg enteric coated tabletIndications: Rheumatoid arthritis involving multiple sites with positive rheumatoid factor (HC),Chest pain at rest,Positive cardiac stress test,Mixed hyperlipidemia,Non -occlusive coronary artery disease Take 81 mg oral twice daily for 4 weeks, then back to the daily dosing 0 2 024 Discontinued( Pharmacist change per medication history (E-cancel not sent)) nitrofurantoin macrocrystaL (MACRODANTIN) 50 mg capsuleIndications :Recurrent UTI Take after intercourse to prevent bladder infections 30 Capsule 3 024 Discontinued( Pharmacist change per medication history (E-cancel not sent)) benzonatate (TESSALON) 100 mg capsuleIndications :Sinusitis, unspecified chronicity, unspecified location Take 1-2 Capsules (100-200 mg) by mouth 3 times daily if needed for Cough. 21 Capsule 3 024 Discontinued( Pharmacist change per medication history (E-cancel not sent)) amoxicillin (AMOXIL) 500 mg capsule TAKE FOUR CAPSULES BY MOUTH ONE HOUR BEFORE APPOINTMENT 3 024 Discontinued( *IP Discontinued) HYDROcodone-acetam inophen (5-325 mg/tablet)Indicati ons:Closed displaced fracture of middle phalanx of left middle finger, initial encounter Take 1 Tablet by mouth every 4 hours if needed for Pain. Max acetaminophen dose: 4000 mg in 24 hrs. 15 Tablet 4 024 Discontinued( Pharmacist change per medication history (E-cancel not sent)) doxycycline 100 mg capsuleIndications :Finger infection Take 1 Capsule (100 mg) by mouth two times daily for 10 days. 20 Capsule 4 024 Active Problems Problem Noted Date Diagnosed Date Wound infection after surgery 01/31/2024 Closed displaced fracture of middle phalanx of left middle finger 01/03/2024 Closed displaced fracture of right patella with routine healing 12/16/2021 S/p reverse total shoulder a rthroplasty, left shoulder, Biceps tenodesis 11/30/21 Dr. Romie Arellano 12/03/2021 Closed fracture of proximal end of left humerus with routine healing 11/27/2021 Hyperparathyroidism, unspecified 11/27/2021 Non-occlusive coronary artery disease 09/17/2020 Overview: Mild per angiogram 08/12/20 Positive cardiac stress test 08/05/2020 Mixed hyperlipidemia 08/05/2020 Family history of colon cancer 04/07/2016 Overview: Colonoscopy 03/2016 normal repeat in 5 years Cologuard negative 08/2021 Rheumatoid arthritis involvi ng multiple sites with positive rheumatoid factor 08/30/2008 Symptomatic menopausal or female climacteric sta ralph 07/19/2007 Malignant neoplasm of upper lobe of right lung 1 09/19/2006 Overview: 1998 - s/p thoracotomy and partial resection; Gets chest xray every 2 years to monitor Unspecified hypothyroidism 07/19/2007 Osteoporosis 05/08/2004 Overview: BONE MINERAL DENSITY 08/24/2010 at Rheumatology office. 08/25/2010 Bone mineral density done at Rheumatology office 04/04/2013 Resolved Problems Problem Noted Date Diagnosed Date Resolved Date Chest pain at rest 08/05/2020 3 Lung nodule 05/23/2020 08/17/2021 LBP radiating to left leg 08/11/2011 Unspecified gastritis and ga stroduodenitis without mention of hemorrhage 08/11/2011 08/14/2012 Family history of colonic polyps 08/22/2009 04/07/2016 Overview: Colonoscopy 08/2009 normal repeat in 5 years Routine general medical exam ination at a health care facility 07/19/2007 09/06/2016 Overview: flexible sigmoidoscopy 10/13/2000 BMD 05/2004 Screening for lipoid disorders 07/19/2007 09/06/2016 Encounters Date Type Department Care Team Description 02/16/2024 9:45 AM CDT Office Visit [facility] [address] [facility] [address] [place] [address] Elliot Andino MD Surgical Followup (S/P left middle finger, incision and drainage with infection to the level of the PIP joint and bone, DOS: 01/31/24 by Elliot Andino MD) 02/16/2024 Travel 02/03/2024 11:45 AM CDT Office Visit [facility] [address] [place] [address] Paco Lynch MD Follow Up (Broken middle finger on left hand) 02/03/2024 Travel 01/31/2024 1:31 PM CDT Anesthesia Event [address] [address] Evelyn Dallas MD Nye, Hoyt William, MD 01/31/2024 12:38 PM CDT - 01/31/2024 1:48 PM CDT Surgery [address] [address] Elliot Andino MD LEFT MIDDLE FINGER INCISION DRAINAGE WOUND 01/31/2024 11:05 AM CDT - 01/31/2024 2:56 PM CDT Hospital Encounter [address] [address] Elliot Andino MD Finger infection (Primary Dx) Discharge Disposition: Home Self Care 01/31/2024 Patient Outreach [facility] [address] [place] [address] Sandi Wilkerson, RN Primary RN Care Management; Hospital F/U ([facility] 73) 01/30/2024 Travel 01/30/2024 Transcribe Orders [address] [address] Elliot Andino MD 01/29/2024 10:14 AM CDT - 01/30/2024 2:25 PM CDT Hospital Encounter [address] [address] Diane Hernandez MD Smock, Patrick Hunter, MD [facility], Hospitalist [facility] [place] infection (Primary Dx) Discharge Disposition: Home Self Care 01/29/2024 Travel 01/28/[address] [address] Elliot Andino MD Appointment Request (MIDDLE FINGER LEFT HAND INFECTION ) 01/24/2024 9:23 AM CDT - 01/24/2024 11:59 PM CDT Hospital Encounter [address] [address] Kelly Polk, PA Елена Espinosa, OT Closed displaced fracture of middle phalanx of left middle finger, initial encounter 01/24/2024 Travel 01/20/2024 Telephone [facility] [address] [place] [address] Kelly Polk PA Appointment Request 01/19/2024 1:00 PM CDT Office Visit [facility] [address] [facility] [address] [place] [address] Kelly Polk PA Post-op (s/p left middle finger fracture ORIF by Dr. Andino on 01/06/24) 01/19/2024 Travel 01/03/2024 1:45 PM CDT - 01/03/2024 3:15 PM CDT Surgery [address] [address] Elliot Andino MD LEFT MIDDLE FINGER PIP FRACTURE CLOSED REDUCTION PINNING FINGER 01/03/2024 1:42 PM CDT Anesthesia Event [address] [address] Nick An MD Nye, Jerome Awad MD 01/03/2024 10:56 AM CDT - 01/03/2024 3:10 PM CDT Hospital Encounter [address] [address] Elliot Andino MD Closed displaced fracture of middle phalanx of left middle finger, initial encounter (Primary Dx) Discharge Disposition: Home Self Care 01/03/2024 Travel 12/30/2023 10:05 AM CDT Preop Visit [facility] [address] [place] [address] Paco Lynch MD Preoperative Exam (Closed displaced fracture of middle phalanx of left middle finger 01/03/24 at [facility] [place] Dr. 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) 12/29/2023 Transcribe Orders [facility] [address] [facility] [address] [place] [address] Elliot Andino MD 12/29/2023 Telephone [facility] [address] [place] [address] Paco Lynch MD Appointment Request (pre-op exam) 12/29/2023 Telephone [facility] [address] [facility] [address] [place] [address] Elliot Andino MD Error-please disregard (/) 12/29/2023 Travel 12/22/2023 11:30 AM CDT Office Visit [facility] [address] [place] [address] Munir Dye PA Consult (left 3rd finger) 12/22/2023 11:20 AM CDT Ancillary Procedure [facility] [address] [place] [address] 12/22/2023 Telephone [facility] [address] [place] [address] Munir Dye PA Appointment 12/22/2023 Travel 12/19/2023 Telephone [facility] [address] [place] [address] Paco Lynch MD Follow up 12/17/23 12/19/2023 Telephone [facility] [address] [facility] [address] [place] [address] Zoe Campos RN Referral 12/17/2023 3:55 PM CDT Ancillary Procedure [address] [place] [address] 12/17/2023 3:40 PM CDT Office Visit [facility] [address] [place], [place] [address] [address] Levy Ferrara PA Finger Injury ([place] last evening injuring left middle finger. Bruised and swollen. Robert taped until today. ) 12/17/2023 Travel 12/02/2023 1:50 PM CDT Office Visit [facility] [address] [facility] [address] [facility] [address] [place] [address] Osman Suarez MD Follow Up 12/02/2023 Travel from Last 3 Months Immunizations Name Administration Dates Next Due COVID-19 vaccine (PeerJ NTVocalZoom 30mcg/0.3mL) PFMDV 05/22/2021 Influenza A (H1N1), Inactivated 07/24/2009 Influenza A (H1N1), Inactiva aiyana (Age >=3 Years) 07/24/2009 Influenza, IIV3 (Age 6-35 mos) 07/24/2009 Influenza, IIV3 (Age >=3 years) 07/11/20 12,08/11/2011,07/28/2010,2008,07/22/2008,07/19/2007,06/20/2006,1 08/10/2004 Influenza, Inactivated AIIV4 (Age 65+ Years) Preserv Free 08/23/2023,05/22/2021,05/13/2020 Influenza, Inactivated IIV3 (Age 65+ Years) Preserv Free 04/17/2019 Pneumococcal Poly,23-Valent (Pneumovax) 02/24/2016,06/10/2005 Pneumococcal conj 13-Valent (Prevnar 13) 11/25/2014 Td (Age >=7 Years) 05/12/2004 Tdap 11/24/2021,07/11/2012 Zoster (Shingrix-RZV, recombinant) 08/22/2018,,09/19/2017 Zoster (Zostavax-ZVL, live) 07/11/2012 Family History Medical History Relation Name Comments Diabetes Brother 2 Ramiro Heart Disease Brother 2 Ramiro Hypertension Brother 2 Ramiro 71 yo [place] 2007 Heart attack Brother 3 Bill Hypertension Mother Alana Cancer-colon Sister 1 Jenn Thyroid Disease Sister 1 Jenn Thyroid Disease Sister 2 Sheba Thyroid Disease Sister 3 Meseret Thyroid Disease Sister 4 Rain Anesthesia Malignant Hyperthermia No Family History Anesthesia Problem No Family History Blood Disease No Family History Cancer-breast No Family History Cancer-ovarian No Family History Relation Name Status Comments Brother 1 Jairo (Age 17) MVA Brother 2 Ramiro (Age 60s) Heart Att ack? Brother 3 Bill Brother 4 Juanito Alive Brother 5 Skip Alive Brother 6 Micah Alive Brother 7 Jori Alive Father Jarrell (Age 72) Mother Alana (Age 51) Sister 1 Jenn Alive Sister 2 Sheba Alive Sister 3 Meseret Alive Sister 4 Rain Alive Social History Tobacco Use Types Packs/Day Years Used Date Smoking Tobacco: Former Cigarettes Q uit: 05/08/1998 Smokeless Tobacco: Never Tobacco Cessation:Counseling Given: Not Answered Alcohol Use Standard Drinks/Week Comments No 0 (1 standard drink = 0.6 oz pur e alcohol) PHQ-2 Answer Date Recorded PHQ-2 TOTAL SCORE 0 03/28/2023 Social Connections Answer Date Recorded Frequency of Communication with Friends and Fami ly 0 08/23/2023 Financial Resource Strain Answer Date R ecorded Difficulty of Paying Living Expenses 3 08/23/2023 Difficulty of Paying Living Expenses Not on file 08/23/2023 Food Insecurity Answer Date Recorded Worried About Running Out of Food in the Last Ye ar 1 08/23/2023 Transportation Needs Answer Date Record ed Lack of Transportation (Medical) 1 08/23/2023 Housing Stability Answer Date Recorded Unable to Pay for Housing in the Last Year 1 08/23/2023 Sex and Gender Information Value Date Recorded Sex Assigned at Not on file Gender Identity Not on file Sexual Orientation Not on file Obstetrics History Para Term AB IAB SAB Ectopic Multiple Livin g Live Births 3 3 3 Date Outcome GA Total Labor Labor/2nd/3rd Weight Sex Type Anes PTL Antonia A1 A5 Name Clin Para Para Para Last Filed Vital Signs Vital Sign Reading Time Taken Comments Blood Pressure 117/79 02/03/2024 11:47 AM CDT Pulse 63 02/03/2024 11:47 AM CDT Temperature 36.6 ??C (97.8 ??F) 01/31/2024 2:15 PM CD T Respiratory Rate 18 01/31/2024 2:51 PM CDT Oxygen Saturation 99% 02/03/2024 11:47 AM CDT Inhaled Oxygen Concentration - - Weight 61.8 kg (136 lb 4.8 oz) 02/03/2024 11:47 AM CDT Height 160 cm (5' 3) 01/31/2024 11:30 AM CDT Body Mass Index 24.14 01/31/2024 11:30 AM CDT Plan of Treatment Upcoming Encounters Date Type Department Care Team (Late st Contact Info) Description 02/21/2024 1:45 PM CDT Appointment [address] [place] [address] Елена Espinosa, OT [address] [facility] [place] [address] 02/28/2024 9:30 AM CDT Appointment [address] [place] [address] Елена Espinosa, OT [address] [place] [address] [place] [address] 03/06/2024 9:30 AM CDT Appointment [address] [place] [address] Jesús Елена A, OT 35 [facility] [place] [address] 03/13/2024 9:30 AM CDT Appointment [address] [address] Jesús Елена A, OT [address] [place] [address] [place] [address] 04/10/2024 10:00 AM CDT Office [place] [facility] [address] [facility] [address] [place] [address] Douglas Valentine MD [address] [facility] [address] [place] [address] Health Maintenance Due Date Last Done Comments COVID-19 vaccine series (2022-24 season) 2023 05/22/2021, 2020, 10/10/2020 BMI (ht and wt on same day) for age 18+ 03/28/2024 03/28/2023, 08/17/2021, 12/11/2020, Additional history exists Depression screening for age 12+ 03/28/2024 03/28/2023, 08/18/2021, 08/17/2021, Additional history exists Medicare Wellness for age 65+ 03/28/2024, 08/17/2021, 05/13/2020, Additional history exists Influenza for age 65+ 04/08/2024 08/23/2023 , 05/22/2021, 05/13/2020, Additional history exists Tetanus booster 11/25/2031 11/24/2021, 11/2011, 05/12/2004 Hepatitis C screening for ag e 18-79 Completed 08/30/2008 Pneumococcal series for age 65+ Completed 02/24/2016, 11/25/2014, 06/10/2005 Zoster (shingles) series for age 50+ Completed 08/22/2018, 05/06/2018, 09/19/2017, Additional history exists DEXA/DXA scan for age 65+ Completed 2019, 08/13/2015, 04/03/2013, Additional history exists Fecal testing sDNA-FIT (Cologuard) for age 45-75 Discontinued 08/24/2021 Tdap Completed 11/24/2021, 07/11/2012 Medical Devices Implanted Type Area Design Editor Device Identifier Shelf Expiration Date Model / Serial / Lot Fxbridge Tuberosity Repair System Implanted:Qty: 2 on 11/30/2021 by Romie Arellano MD at [facility] Left: Shoulder 06/07/2028 AR-[id number] / / [id number] Description:FXBRIDGE TUBEROS ITY REPAIR SYSTEM Humeral Insert Comb Mod Glenoid Sys Implanted:Qty: 1 on 11/30/2021 by Romie Arellano MD at [facility] Left: Shoulder 04/07/2024 AR-9503-3 633-3 / [id number] Description:HUMERAL INSERT C OMB MOD GLENOID SYS Screw Locking 5.5 X 36 Implanted:Qty: 1 on 11/30/2021 by Romie Arellano MD at [facility] Left: Shoulder AR-9563-3 6 / / Description:SCREW LOCKING 5. 5 X 36 Screw Modular 30mm Implanted:Qty: 1 on 11/30/2021 by Romie Arellano MD at [facility] Left: Shoulder AR-9561-3 0S / / [id number] Description:SCREW MODULAR 30 MM Baseplate Modular 24mm Implanted:Qty: 1 on 11/30/2021 by Romie Arellano MD at [facility] Left: Shoulder AR-9560-2 4-2 88 Description:BASEPLATE MODULA R 24MM Screw Locking 5.5 X 32 Implanted:Qty: 1 on 11/30/2021 by Romie Arellano MD at [facility] Left: Shoulder 06/07/2026 AR-9563-3 2 / / [id number] Description:SCREW LOCKING 5. 5 X 32 Fiber Tape Cerclage 12mm Tigerlink Implanted:Qty: 1 on 11/30/2021 by Romie Arellano MD at [facility] Left: Shoulder [id number] / / [id number] Description:FIBER TAPE CERCL AGE 12MM TIGERLINK Modular Glenoid Sys, Glenosphere 33/24 Implanted:Qty: 1 on 11/30/2021 by Romie Arellano MD at [facility] Left: Shoulder 08/07/2024 AR-9564-2 433 / / [id number] Description:MODULAR GLENOID SYS, GLENOSPHERE 33/24 Shoulder Impl Suture Cup 36 Neutral Implanted:Qty: 1 on 11/30/2021 by Romie Arellano MD at [facility] Left: Shoulder 03/07/2026 [id number]- 36CPC / / [id number] Description:SHOULDER IMPL WHITTEN TURE CUP 36 NEUTRAL Humeral Stem Univers Revers Implanted:Qty: 1 on 11/30/2021 by Romie Arellano MD at [facility] Left: Shoulder 08/07/2025 AR-9501-0 9P / / [id number] Description:HUMERAL STEM UNI VERS REVERS K-Wire [id number] Dbl Trocar Smooth - [id number] Implanted:Qty: 2 on 01/03/2024 by Elliot Andino MD at [facility] [employer] [facility] [id number] / / Description:Load [id number] Procedures Procedure Name Priority Date/Time Associated Diagnosis Comments AEROBIC BACTERIAL CULTURE, STAIN Today 01/31/2024 1:55 PM CDT ANAEROBIC CULTURE Today 01/31/2024 1:5 5 PM CDT DEBRIDEMENT WOUND Class E Urgent 01/31/2024 1:2 1 PM CDT Pain of left middle finger Case Notes 30 MINS- SWING SUPINEHAND TABLEHAND TRAY PA TO ASSIST Special Needs 5 ft 3 in, 60.3 kg, BMI 23.56Pt will be D/C today 01/29 ~ 1430 WHITE BLOOD COUNT Early AM 01/30/2024 11:21 AM CDT CREATININE Early AM 01/30/2024 8:56 AM CDT POTASSIUM Early AM 01/30/2024 8:56 AM CDT BODY FLUID CULTURE,STAIN (AEROBIC) STAT 01/29/2024 2:19 PM CDT CBC WITH AUTO DIFFERENTIAL STAT 01/29/2024 11:04 AM CDT CBC WITH AUTO DIFFERENTIAL STAT 01/29/2024 11:04 AM CDT BASIC METABOLIC PANEL STAT 01/29/2024 11:04 AM CDT XR FINGER 3 VIEWS LEFT STAT 01/29/2024 10:57 AM CDT XR C-ARM GREATER 1 HR Routine 01/03/2024 2:50 PM CDT MI OPEN TX ARTICULAR FRACTURE MCP/IP JOINT EA Class E Urgent 01/03/2024 1:26 PM CDT Closed displaced fracture of middle phalanx of left middle finger, initial encounter Case Notes 60 MIN SWING HAND TABLE, HAND TRAY; MINI C-ARM; K-WIRE; K-WIRE S3B 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; DRILL;ARTHREX MINI CFS HAND SET (AVAILABLE - NOT OPEN) Special Needs 5ft2in 61.1kg 24.64 BMIASA Last dose 12-30-23 BEDSIDE US STUDY ARCHIVE Preop 01/03/2024 11:13 AM CDT XR FINGER 3 VIEWS LEFT Routine 12/22/2023 11:25 AM CDT Pain of left middle finger XR FINGER 3 VIEWS LEFT CALEB 12/17/2023 3:55 PM CDT Pain of middle finger T4,FREE Routine 12/02/2023 2:26 PM CDT Postinfectious hypothyroidism TSH Routine 12/02/2023 2:26 PM CDT Postinfectious hypothyroidism FECAL DNA (AKA COLOGUARD) Routine 08/24/2021 12:00 AM DESKTOP ARCHITECT Screening for colon cancer SCAN-BONE DENSITOMETRY DEXA 05/15/2020 12:00 AM CDT ACUTE HEPATITIS PANEL Routine 08/30/2008 3:59 PM DESKTOP ARCHITECT Rheumatoid Arthritis (HC) from Last 3 Months or Most Recently Relevant to Health Maintenance Results * AEROBIC BACTERIAL CULTURE, STAIN (01/31/2024 1:55 PM CDT) CULTURE No Growth. 02/03/2024 8:01 AM CDT [facility] GRAM STAIN 1+ PMNs 02/03/2024 8:[address] [facility] GRAM STAIN No Epithelial cells 02/03/2024 8:[address] [facility] GRAM STAIN No RBCs 02/03/2024 8:[address] [facility] GRAM STAIN No organisms seen 02/03/2024 8:[address] [facility] GRAM STAIN Gram stain performed by [place], [place] 02/03/2024 8:[address] [facility] Swab (Other) Non-Blood / Unknown 01/31/2024 1:55 PM CDT 01/31/2024 3:47 PM CDT Elliot Andino MD MICROBIOLOGY Performing Organization Address City/[facility]/ZIP Co de Phone Number [facility] [address] [address], [facility] SENDOUT INTERNAL ZIP [phone] [place] [id number] * ANAEROBIC CULTURE (01/31/2024 1:55 PM CDT) CULTURE No anaerobes isolated 02/06/2024 11:07 AM CDT [facility] Swab (Other) Non-Blood / Unknown 01/31/2024 1:55 PM CDT 01/31/2024 3:47 PM CDT Elliot Andino MD MICROBIOLOGY Performing Organization Address [facility] Co de Phone Number [facility] [address] [address], * WHITE BLOOD COUNT (01/30/2024 11:21 AM CDT) WHITE BLOOD COUNT 6.2 4.5 - 11.0 thou/cu mm 01/30/2024 11:[address] [facility] NRBC 0.0 % 01/30/2024 11:[address] [facility] ABS NRBC 0.0 thou /cu mm 01/30/2024 11:[address] [facility] Blood BLOOD SPECIMEN / Unknown Venipuncture / Unknown 01/30/2024 11:21 AM CDT 01/30/2024 11:23 AM CDT Xiao Cr MD HEMATOLOGY Performing Organization Address City/[facility]/ZIP Co de Phone Number [facility] SENDOUT INTERNAL ZIP [address] [address] [place] [address] * POTASSIUM (01/30/2024 8:56 AM CDT) POTASSIUM 3.9 3.5 - 5.1 mmol/L 01/30/2024 10:[address] [facility] Blood BLOOD SPECIMEN / Unknown Venipuncture / Unknown 01/30/2024 8:56 AM CDT 01/30/2024 9:35 AM CDT Xiao Cr MD CHEMISTRY [facility] SENDOUT INTERNAL ZIP [address] [place] [id number] * CREATININE (01/30/2024 8:56 AM CDT) Pathologist [facility] eGFR >90 >90 mL/min/1.7 3m2 01/30/2024 10:[address] [facility] Comment:As of 2021, eG FR is calculated by the CKD-EPI creatinine equation without race adjustment. ??eGFR can be influenced by muscle mass, exercise, and diet. ??The reported eGFR is an estimation only and is only applicable if the renal function is stable. CREATININE 0.53 0.50 - 0.90 mg/dL 01/30/2024 10:[address] [facility] Blood BLOOD SPECIMEN / Unknown Venipuncture / Unknown 01/30/2024 8:56 AM CDT 01/30/2024 9:35 AM CDT Xiao Cr MD CHEMISTRY [facility] SENDOUT [place]IP [id number] [address] [place] [address] * (ABNORMAL) BODY FLUID CULTURE,STAIN (AEROBIC) (01/29/2024 2:19 PM CDT) Pathologist [facility] CULTURE RESULT(A) 02/01/2024 7:47 AM CDT [facility] CULTURE 1+ Staphylococcus aureus 02/01/2024 7:47 AM CDT [facility] GRAM STAIN 1+ Epithelial cells(A) 02/01/2024 7:[address] [facility] GRAM STAIN 4+ RBCs(A) 02/01/2024 7:[address] [facility] GRAM STAIN 1+ WBC(A) 02/01/2024 7:[address] [facility] GRAM STAIN 1+ Gram Positive Cocci(A) 02/01/2024 7:[address] [facility] GRAM STAIN Gram stain performed by [place], [place](A) 02/01/2024 7:[address] [facility] Body Fluid (Left 3rd Finger) Non-Blood / Unknown 01/29/2024 2:19 PM CDT 01/29/2024 2:23 PM CDT Narrative Organism Antibiotic Method Susceptibility Staphylococcus aureus OXACILLIN 0.5: S Comment:Oxacillin whitten sceptible should not be interpreted as penicillin or amoxicillin susceptible. Staphylococcus aureus CLINDAMYCIN 0.25: S Staphylococcus aureus DOXYCYCLINE <=0.5: S Staphylococcus aureus CEFAZOLIN S Staphylococcus aureus TRIMETHOPRIM/SULF <=0.5/9.5: S Diane Hernandez MD MICROBIOLOGY [facility] [address] [place] [address], [facility] SENDOUT INTERNAL ZIP [phone] [place] [address] * CBC WITH AUTO DIFFERENTIAL (01/29/2024 11:04 AM CDT) WHITE BLOOD COUNT 6.7 4.5 - 11.0 thou/cu mm 01/29/2024 11:[address] [facility] RED BLOOD COUNT 4.01 4.00 - 5.20 mil/cu mm 01/29/2024 11:[address] [facility] HEMOGLOBIN 12.7 12.0 - 16.0 g/dL 01/29/2024 11:[address] [facility] HEMATOCRIT 37.1 33.0 - 51.0 % 01/29/2024 11:[address] [facility] MCV 93 80 - 100 fL 01/29/2024 11:[address] [facility] MCH 31.7 26.0 - 34.0 pg 01/29/2024 11:13 AM [facility] MCHC 34.2 32.0 - 36.0 g/dL 01/29/2024 11:13 AM [facility] RDW 15.1 11.5 - 15.5 % 01/29/2024 11:13 AM [facility] PLATELET COUNT 188 140 - 440 thou/cu mm 01/29/2024 11:13 AM [facility] MPV 9.7 6.5 - 11.0 fL 01/29/2024 11:13 AM [facility] NRBC 0.0 % 01/29/2024 11:13 AM [facility] ABS NRBC 0.0 thou /cu mm 01/29/2024 11:13 AM [facility] % NEUT 64.5 % 01/29/2024 11:13 AM [facility] % LYMPH 24.2 % 01/29/2024 11:13 AM [facility] % MONO 8.4 % 01/29/2024 11:13 AM [facility] % EOS 2.0 % 01/29/2024 11:13 AM [facility] % BASO 0.6 % 01/29/2024 11:13 AM [facility] % IMMATURE GRAN (METAS,MYELOS,MI OS) 0.3 % 01/29/2024 11:13 AM [facility] ABSOLUTE NEUTROPHILS 4.3 1.7 - 7.0 thou/cu mm 01/29/2024 11:13 AM [facility] ABSOLUTE LYMPHOCYTES 1.6 0.9 - 2.9 thou/cu mm 01/29/2024 11:13 AM [facility] ABSOLUTE MONOCYTES 0.6 <0.9 thou/cu mm 01/29/2024 11:13 AM [facility] ABSOLUTE EOSINOPHILS 0.1 <0.5 thou/cu mm 01/29/2024 11:13 AM [facility] ABSOLUTE BASOPHILS 0.0 <0.3 thou/cu mm 01/29/2024 11:13 AM [facility] ABSOLUTE IMMATURE GRANULOCYTES(MET ,MYELOS,PROS) 0.0 <0.3 thou/cu mm 01/29/2024 11:13 AM [facility] Blood BLOOD SPECIMEN / Unknown Non-Lab Venipuncture / Unknown 01/29/2024 11:04 AM CDT 01/29/2024 11:09 AM T Diane Hernandez MD HEMATOLOGY [facility] SENDOUT INTERNAL ZIP [phone] [place] [phone] * (ABNORMAL) BASIC METABOLIC PANEL (01/29/2024 11:04 AM CDT) SODIUM 138 136 - 145 mmol/L 01/29/2024 11:[address] [facility] POTASSIUM 4.3 3.5 - 5.1 mmol/L 01/29/2024 11:29 AM [facility] CHLORIDE 107 98 - 107 mmol/L 01/29/2024 11:29 AM [facility] CO2,TOTAL 23 22 - 29 mmol/L 01/29/2024 11:29 AM [facility] ANION GAP 8 5 - 18 01/29/2024 11:29 AM [facility] GLUCOSE 91 70 - 99 mg/dL 01/29/2024 11:29 AM [facility] CALCIUM 8.8 8.8 - 10.2 mg/dL 01/29/2024 11:29 AM [facility] BUN 17 8 - 23 mg/dL 01/29/2024 11:29 AM [facility] CREATININE 0.57 0.50 - 0.90 mg/dL 01/29/2024 11:29 AM [facility] BUN/CREAT RATIO 30(H) 10 - 20 11:29 AM [facility] eGFR >90 >90 mL/min/1.7 3m2 01/29/2024 11:29 AM [facility] Comment:As of 2021, eG FR is calculated by the CKD-EPI creatinine equation without race adjustment. ??eGFR can be influenced by muscle mass, exercise, and diet. ??The reported eGFR is an estimation only and is only applicable if the renal function is stable. Blood BLOOD SPECIMEN / Unknown Non-Lab Venipuncture / Unknown 01/29/2024 11:04 AM CDT 01/29/2024 11:09 AM CDT Diane Hernandez MD CHEMISTRY [facility] SENDOUT [place]NAL ZIP [phone] [place] [address] * XR FINGER 3 VIEWS LEFT (01/29/2024 10:57 AM CDT) Only the most recent of3 resultswithin the time period is included. Anatomical Region Laterality Modality Finger Computed Radiogr aphy 01/29/2024 10:5 7 AM CDT Impressions 01/29/2024 11:18 AM CDT Interval percutaneous pinning of intra-articular fracture of the third digit middle phalanx, and improved alignment. No new fractures identified. Extensive soft tissue edema about the fracture site. Narrative 01/29/2024 11:18 AM CDT For Patients: As a result of the Cures Act, medical imaging exams and procedure reports are released immediately into your electronic medical record. You may view this report before your referring provider. If you have questions, please contact your health care provider. EXAM: XR FINGER 3 VIEWS LEFT LOCATION: [facility] DATE: 01/29/2024 INDICATION: Pain Swelling COMPARISON: 12/22/2023 Procedure Note Ender Epstein MD - 01/29/2024 For Patients: As a result of the s Act, medical imagingexams and procedure reports are released immediately into your electronicmedical record. You may view this report before your referring provider.If you have questions, please contact your health care provider. EXAM: XR FINGER 3 VIEWS LEFT LOCATION: [facility] DATE: 01/29/2024 INDICATION: Pain Swelling COMPARISON: 12/22/2023 IMPRESSION: Interval percutaneous pinning of intra-articular fracture of the thirddigit middle phalanx, and improved alignment. No new fractures identified.Extensive soft tissue edema about the fracture site. Diane Hernandez MD GENERAL IMAGI NG * XR C-ARM GREATER 1 HR (01/03/2024 2:50 PM CDT) Anatomical Region Laterality Modality Computed Radiogr aphy 01/03/2024 2:50 PM CDT Impressions 01/04/2024 7:29 AM CDT Fluoroscopic guidance was provided to the orthopedic surgery service for purposes of left middle finger proximal interphalangeal joint reduction and percutaneous pinning. 2 spot fluoroscopic images were submitted for review. Please see separately dictated orthopedic surgery procedure note for additional details. Narrative 01/04/2024 7:29 AM CDT For Patients: As a result of the Cures Act, medical imaging exams and procedure reports are released immediately into your electronic medical record. You may view this report before your referring provider. If you have questions, please contact your health care provider. EXAM: XR C-ARM GREATER 1 HR LOCATION: [facility] DATE: 01/03/2024 INDICATION: free text)->Intraoperative COMPARISON: None. TECHNIQUE: Intraoperative fluoroscopy performed during the patient's procedure. RADIATION DOSE: DAP 9.3066 Procedure Note Ender Epstein MD - 01/04/2024 For Patients: As a result of the s Act, medical imagingexams and procedure reports are released immediately into your electronicmedical record. You may view this report before your referring provider.If you have questions, please contact your health care provider. EXAM: XR C-ARM GREATER 1 HR LOCATION: [facility] DATE: 01/03/2024 INDICATION: free text)->Intraoperative COMPARISON: None. TECHNIQUE: Intraoperative fluoroscopy performed during the patient'sprocedure. RADIATION DOSE: DAP 9.3066 IMPRESSION: Fluoroscopic guidance was provided to the orthopedic surgery service forpurposes of left middle finger proximal interphalangeal joint reductionand percutaneous pinning. 2 spot fluoroscopic images were submitted forreview. Please see separately dictated orthopedic surgery procedure notefor additional details. Elliot Andino MD FLUOROSCOPY * TSH (12/02/2023 2:26 PM CDT) TSH 0.78 0.27 - 4.20 uIU/mL 12/02/2023 3:[address] [facility] Blood BLOOD SPECIMEN / Unknown Venipuncture / Unknown 12/02/2023 2:26 PM CDT 12/02/2023 2:[address] [facility] - 12/02/2023 3:04 PM CDT In Adults, TSH values between 5.00 and 10.00 uIU/ml do not necessarily indicate the presence of Hypothyroidism. Correlation with clinical findings such as presence of goiter and/or Thyroperoxidase (TPO) Antibody may be helpful. For more information please refer to STEPAN 2004; 291: 228-238. Osman Suarez MD CHEMISTRY Performing Organization Address [facility]/ZIP Co de Phone Number [facility] SENDOUT INTERNAL ZIP [phone] [place] [address] * T4,FREE (12/02/2023 2:26 PM CDT) T4,FREE 1.30 0.93 - 1.70 ng/dL 12/02/2023 3:[address] [facility] Blood BLOOD SPECIMEN / Unknown Venipuncture / Unknown 12/02/2023 2:26 PM CDT 12/02/2023 2:27 PM CDT Osman Suarez MD CHEMISTRY Performing Organization Address [facility]/ZIP Co de Phone Number [facility] SENDOUT INTERNAL ZIP [address] [place] [id number] * FECAL DNA (AKA COLOGUARD) (08/24/2021 12:00 AM DESKTOP ARCHITECT) Paco Lynch MD COMMUNICATION ORD * SCAN-BONE DENSITOMETRY DEXA (05/15/2020 12:00 AM CDT) Anatomical Region Laterality Modality Other Scanner OTHER * ACUTE HEPATITIS PANEL (08/30/2008 3:59 PM DESKTOP ARCHITECT) HBSAG Non-reacti ve [facility] IGM ANTI HBC Non-reacti ve [facility] IGM ANTI HAV Non-reacti ve [facility] ANTI HCV Non-reacti ve [facility] Blood specimen (specimen) BLOOD SPECIMEN / Unknown 08/30/2008 3:59 PM DESKTOP ARCHITECT 08/30/2008 3:55 PM DESKTOP ARCHITECT Bonnie Bartholomew DO SEND OUTS [facility] INTERNAL ZIP [phone] [address] from Last 3 Months or Most Recently Relevant to Health Maintenance Advance Directives * Full Code (Latest Code Status on File) Date Activated Date Inactivated Comments 01/31/2024 11:25 AM 01/31/2024 5:12 PM Question Answer Comments Code Status Discussion: Reviewed Preferences * Full Code Date Activated Date Inactivated Comments 01/29/2024 6:36 PM 01/30/2024 4:55 PM Question Answer Comments Code Status Discussion: Unable to Assess Preferences, Provider to review later * Full Code Date Activated Date Inactivated Comments 01/03/2024 11:12 AM 01/03/2024 5:21 PM Question Answer Comments Code Status Discussion: Reviewed Preferences * Full Code Date Activated Date Inactivated Comments 11/30/2021 9:52 AM 12/01/2021 2:26 PM Question Answer Comments Code Status Discussion: Reviewed Preferences * Full Code Date Activated Date Inactivated Comments 08/12/2020 9:50 AM 08/12/2020 6:57 PM Question Answer Comments Code Status Discussion: Not Discussed Care Teams Esthetic Dermatologist Relationship Specialty Start Date End Date Paco Lynch MD [address] [place] [address] PCP - General Family Practice 06/27/13 Deangelo Heaton MD [address] [place] [address] Rheumatology 08/11/11 Osman Suarez MD [address] [facility] [address] [place] [address] Endocrinology 09/29/22
--- OUTSIDE RECORDS SUMMARY | 2024-02-19 15:41 | XMS_ITS | Continuity of Care Document ---
Author Organization [facility] Address [address] [place] [address] Phone Care Team Providers Care Account Executive Trainee Name Role Phone Deangelo Heaton MD Unavailable Unavailable Allergies, Adverse Reactions, Alerts Substance Reaction Status Criticality No Known Allergies Active No Inform ation Medications Medication Instructions Dosage Effective Dates (start - stop) Status Comments Methotrexate Sodium 2.5 MG Oral Tablet TAKE 7 TABLETS BY MOUTH ONCE A WEEK - Active folic acid 1 mg tablet take 2 tablet by oral route every morning 2 MG - Active REMICADE (unknown strength) Not Available - Active atorvastatin 40 mg tablet take 1 tablet by oral route every day 40 MG - Active Vitamin D3 1,000 unit Tab take one tablet daily - Active aspirin 325 mg Tab take 1 tablet (325MG) by oral route every day 325 MG - Active Calcium with Vitamin D 600 mg (1,500 mg)-400 unit Tab take one table twice a day - Active methotrexate sodium 2.5 mg tablet TAKE 6 TABLETS BY MOUTH ONCE A WEEK - No Longer Active Procedures Procedure Date Office/Outpatient Visit, Est Routine Venipuncture Assay Of Serum Albumin Assay Of Creatinine Transferase (Ast) (Sgot) Alanine Amino (Alt) (Sgpt) Complete Cbc, Automated Office/Outpatient Visit, Est Routine Venipuncture Rbc Sed Rate, Automated Assay Of Serum Albumin Assay Of Creatinine Transferase (Ast) (Sgot) Alanine Amino (Alt) (Sgpt) CReactive Protein Complete Cbc, Automated Office/Outpatient Visit, Est Routine Venipuncture Rbc Sed Rate, Automated Assay Of Serum Albumin Assay Of Creatinine Transferase (Ast) (Sgot) Alanine Amino (Alt) (Sgpt) CReactive Protein Complete Cbc, Automated Office/Outpatient Visit, Est Routine Venipuncture Rbc Sed Rate, Automated Assay Of Serum Albumin Assay Of Creatinine Transferase (Ast) (Sgot) Alanine Amino (Alt) (Sgpt) CReactive Protein Complete Cbc, Automated Office/Outpatient Visit, Est Routine Venipuncture Rbc Sed Rate, Nonautomated Assay Of Serum Albumin Assay Of Creatinine Transferase (Ast) (Sgot) Alanine Amino (Alt) (Sgpt) CReactive Protein Complete Cbc, Automated Office/Outpatient Visit, Est Routine Venipuncture Rbc Sed Rate, Nonautomated Assay Of Serum Albumin Assay Of Creatinine Transferase (Ast) (Sgot) Alanine Amino (Alt) (Sgpt) CReactive Protein Complete Cbc, Automated Office/Outpatient Visit, Est Routine Venipuncture Assay Of Serum Albumin Assay Of Creatinine Transferase (Ast) (Sgot) Alanine Amino (Alt) (Sgpt) Complete Cbc, Automated Office/Outpatient Visit, Est Routine Venipuncture Rbc Sed Rate, Nonautomated Assay Of Serum Albumin Assay Of Creatinine Transferase (Ast) (Sgot) Alanine Amino (Alt) (Sgpt) CReactive Protein Complete Cbc, Automated Office/Outpatient Visit, Est Routine Venipuncture Specimen Handling Rbc Sed Rate, Nonautomated Assay Of Serum Albumin Assay Of Creatinine Transferase (Ast) (Sgot) Alanine Amino (Alt) (Sgpt) CReactive Protein Tb Test, Cell Immun Measure Complete Cbc, Automated Office/Outpatient Visit, Est Routine Venipuncture Rbc Sed Rate, Nonautomated Assay Of Serum Albumin Assay Of Creatinine Transferase (Ast) (Sgot) Alanine Amino (Alt) (Sgpt) CReactive Protein Complete Cbc, Automated Office/Outpatient Visit, Est Routine Venipuncture Rbc Sed Rate, Nonautomated Assay Of Serum Albumin Assay Of Creatinine Transferase (Ast) (Sgot) Alanine Amino (Alt) (Sgpt) CReactive Protein Complete Cbc, Automated Office/Outpatient Visit, Est Routine Venipuncture Rbc Sed Rate, Nonautomated Assay Of Serum Albumin Assay Of Creatinine Transferase (Ast) (Sgot) Alanine Amino (Alt) (Sgpt) CReactive Protein Complete Cbc, Automated Office/Outpatient Visit, Est Office/Outpatient Visit, Est Routine Venipuncture Rbc Sed Rate, Nonautomated CReactive Protein Complete Cbc WAuto Diff Wbc Office/Outpatient Visit, Est Routine Venipuncture Rbc Sed Rate, Nonautomated Assay Of Serum Albumin Assay Of Creatinine Transferase (Ast) (Sgot) Alanine Amino (Alt) (Sgpt) CReactive Protein Complete Cbc, Automated Office/Outpatient Visit, Est Routine Venipuncture Specimen Handling Rbc Sed Rate, Nonautomated Assay Of Serum Albumin Assay Of Creatinine Transferase (Ast) (Sgot) Alanine Amino (Alt) (Sgpt) CReactive Protein Tb Test, Cell Immun Measure Complete Cbc, Automated Office/Outpatient Visit, Est Routine Venipuncture Assay Of Serum Albumin Assay Of Creatinine Transferase (Ast) (Sgot) Alanine Amino (Alt) (Sgpt) CReactive Protein Complete Cbc, Automated Office/Outpatient Visit, Est Routine Venipuncture Assay Of Serum Albumin Assay Of Creatinine Transferase (Ast) (Sgot) Alanine Amino (Alt) (Sgpt) CReactive Protein Complete Cbc, Automated Office/Outpatient Visit, Est Routine Venipuncture Complete Cbc, Automated Assay Of Serum Albumin Assay Of Creatinine Transferase (Ast) (Sgot) Alanine Amino (Alt) (Sgpt) Office/Outpatient Visit, Est Routine Venipuncture Assay Of Serum Albumin Assay Of Creatinine Transferase (Ast) (Sgot) Alanine Amino (Alt) (Sgpt) CReactive Protein Office/Outpatient Visit, Est Routine Venipuncture Assay Of Serum Albumin Assay Of Creatinine Transferase (Ast) (Sgot) Alanine Amino (Alt) (Sgpt) CReactive Protein Complete Cbc, Automated Office/Outpatient Visit, Est Routine Venipuncture Rbc Sed Rate, Nonautomated Assay Of Serum Albumin Assay Of Creatinine Transferase (Ast) (Sgot) Alanine Amino (Alt) (Sgpt) CReactive Protein Complete Cbc, Automated Office/Outpatient Visit, Est Routine Venipuncture Complete Cbc WAuto Diff Wbc Assay Of Serum Albumin Assay Of Creatinine Transferase (Ast) (Sgot) Alanine Amino (Alt) (Sgpt) Office/Outpatient Visit, Est Routine Venipuncture Complete Cbc WAuto Diff Wbc Assay Of Serum Albumin Assay Of Creatinine Transferase (Ast) (Sgot) Alanine Amino (Alt) (Sgpt) Office/Outpatient Visit, Est Routine Venipuncture Specimen Handling Assay Of Serum Albumin Assay Of Creatinine Transferase (Ast) (Sgot) Alanine Amino (Alt) (Sgpt) Dxa Bone Density, Axial Office/Outpatient Visit, Est Routine Venipuncture Complete Cbc WAuto Diff Wbc Assay Of Serum Albumin Assay Of Creatinine Transferase (Ast) (Sgot) Alanine Amino (Alt) (Sgpt) Office/Outpatient Visit, Est Routine Venipuncture Complete Cbc WAuto Diff Wbc Assay Of Serum Albumin Assay Of Creatinine Transferase (Ast) (Sgot) Alanine Amino (Alt) (Sgpt) Office/Outpatient Visit, Est Office/Outpatient Visit, Est Routine Venipuncture Complete Cbc WAuto Diff Wbc Assay Of Serum Albumin Assay Of Creatinine Transferase (Ast) (Sgot) Alanine Amino (Alt) (Sgpt) Office/Outpatient Visit, Est Routine Venipuncture Complete Cbc WAuto Diff Wbc Assay Of Serum Albumin Assay Of Creatinine Transferase Ast Sgot Alanine Amino Alt Sgpt Dxa Bone Density, Axial Office/Outpatient Visit, Est Routine Venipuncture Complete Cbc WAuto Diff Wbc Assay Of Serum Albumin Assay Of Creatinine Transferase Ast Sgot Alanine Amino Alt Sgpt Office/Outpatient Visit, Est Routine Venipuncture Complete Cbc WAuto Diff Wbc Assay Of Serum Albumin Assay Of Creatinine Transferase Ast Sgot Alanine Amino Alt Sgpt Advance Directives Directive Yes / No Effective Date File Name No Information Encounters Encounter Description Practice Location Reason(s) For Visit Diagnoses Date Provider Providers Copied on Encounter [facility] , [address], [place], [address], [place] tel:[phone] [facility] , No Information 4 Florina Bright. [facility] [address], [place], [address], [place]. tel:[phone] Office/Outpa tient Visit, Est [facility] , [address], [place], [address], [place] tel:[phone] [facility] , Rheumatoid arthritis (chief complaint) Seropositive RAOsteoporos is NOSElevated liver enzymesCouns elingHigh risk medication monitoring 4 Florina Bright. [facility] [address], [place], [address], [place]. tel:[phone] Referring Provider: Deangelo Queen, [facility] [address], [place], [address]. tel:[phone] Office/Outpa tient Visit, Est [facility] , [address], [place], [address], [place] tel:[phone] [facility] , Rheumatoid arthritis (chief complaint) Seropositive RAOsteoporos is NOSElevated liver enzymesCouns elingHigh risk medication monitoring 4 Florina Bright. [facility] [address], [place], [address], [place]. tel:[phone] Referring Provider: Deangelo Queen, [facility] [address], [place], [address]. tel:[phone] Office/Outpa tient Visit, Est [facility] , [address], [place], [address], [place] tel:[phone] [facility] , Rheumatoid arthritis (chief complaint) Seropositive RAOsteoporos is NOSElevated liver enzymesCouns elingHigh risk medication monitoring 3 Florina Bright. [facility] [address], [place], [address], [place]. tel:[phone] Referring Provider: Deangelo Queen, [facility] [address], [place], [address]. tel:[phone] Office/Outpa tient Visit, Est [facility] , [address], [place], [address], [place] tel:[phone] [facility] , Rheumatoid arthritis (chief complaint) Seropositive RAOsteoporos is NOSElevated liver enzymesCouns elingHigh risk medication monitoring 3 Florina Bright. [facility] [address], [place], [address], [place]. tel:[phone] Referring Provider: Deangelo Queen, [facility] [address], [place], [address]. tel:[phone] Office/Outpa tient Visit, Est [facility] , [address], [place], [address], [place] tel:[phone] [facility] , Rheumatoid arthritis (chief complaint) Seropositive RAOsteoporos is NOSElevated liver enzymesCouns elingHigh risk medication monitoring 3 Florina Bright. [facility] [address], [place], [address], [place]. tel:[phone] Referring Provider: Deangelo Queen, [facility] [address], [place], [address]. tel:[phone] Office/Outpa tient Visit, Est [facility] , [address], [place], [address], [place] tel:[phone] [facility] , Rheumatoid arthritis (chief complaint) Seropositive RAOsteoporos is NOSElevated liver enzymesCouns elingHigh risk medication monitoring Sep- 2 Florina Bright. [facility] [address], [place], [address], [place]. tel:[phone] Referring Provider: Deangelo Queen, [facility] [address], [place], [address]. tel:[phone] Office/Outpa tient Visit, Est [facility] , [address], [place], [address], [place] tel:[phone] [facility] , Rheumatoid arthritis (chief complaint) Seropositive RAOsteoporos is NOSElevated liver enzymesHigh risk medication monitoringCo unseling 2 Florina Bright. [facility] [address], [place], [address], [place]. tel:[phone] Referring Provider: Deangelo Queen, [facility] [address], [place], [address]. tel:[phone] Office/Outpa tient Visit, Est [facility] , [address], [place], [address], [place] tel:[phone] [facility] , Rheumatoid arthritis (chief complaint) Seropositive RAOsteoporos is NOSElevated liver enzymesHigh risk medication monitoringCo unseling 2 Florina Bright. [facility] [address], [place], [address], [place]. tel:[phone] Referring Provider: Deangelo Queen, [facility] [address], [place], [address]. tel:[phone] Office/Outpa tient Visit, Est [facility] , [address], [place], [address], [place] tel:[phone] [facility] , Rheumatoid arthritis (chief complaint) Seropositive RAOsteoporos is NOSElevated liver enzymesHigh risk medication monitoringCo unselingCram p Apr- 1 Florina Bright. [facility] [address], [place], [address], [place]. tel:[phone] Referring Provider: Deangelo Queen, [facility] [address], [place], [address]. tel:[phone] Office/Outpa tient Visit, Est [facility] , [address], [place], [address], [place] tel:[phone] [facility] , Rheumatoid arthritis (chief complaint) Seropositive RAOsteoporos is NOSElevated liver enzymesHigh risk medication monitoringCo unseling 1 Florina Bright. [facility] [address], [place], [address], [place]. tel:[phone] Referring Provider: Deangelo Queen, [facility] [address], [place], [address]. tel:[phone] Office/Outpa tient Visit, Est [facility] , [address], [place], [address], [place] tel:[phone] [facility] , Rheumatoid arthritis (chief complaint) Seropositive RAOsteoporos is NOSElevated liver enzymesHigh risk medication monitoringCo unseling Mar-0 1 Florina Bright. [facility] [address], [place], [address], [place]. tel:[phone] Referring Provider: Deangelo Queen, [facility] [address], [place], [address]. tel:[phone] Office/Outpa tient Visit, Est [facility] , [address], [place], [address], [place] tel:[phone] [facility] , Rheumatoid arthritis (chief complaint) Seropositive RAOsteoporos is NOSElevated liver enzymesHigh risk medication monitoring Nov-0 0 Florina Bright. [facility] [address], [place], [address], [place]. tel:[phone] Referring Provider: Deangelo Queen, [facility] [address], [place], [address]. tel:[phone] Office/Outpa tient Visit, Est [facility] , [address], [place], [address], [place] tel:[phone] [facility] , Rheumatoid arthritis (chief complaint) Seropositive RAOsteoporos is NOSElevated liver enzymesHigh risk medication monitoring Nate-0 6202 0 Florina Bright. [facility] [address], [place], [address], [place]. tel:[phone] Referring Provider: Deangelo Queen, [facility] [address], [place], [address]. tel:[phone] Office/Outpa tient Visit, Est [facility] , [address], [place], [address], [place] tel:[phone] [facility] , Rheumatoid arthritis (chief complaint) Seropositive RAOsteoporos is NOSElevated liver enzymesHigh risk medication monitoring 0 Florina Bright. [facility] [address], [place], [address], [place]. tel:[phone] Referring Provider: Deangelo Queen, [facility] [address], [place], [address]. tel:[phone] Office/Outpa tient Visit, Est [facility] , [address], [place], [address], [place] tel:[phone] [facility] , Rheumatoid arthritis (chief complaint) Seropositive RAOsteoporos is NOSHigh risk medication monitoringEl evated liver enzymes 0-201 9 Florina Bright. [facility] [address], [place], [address], [place]. tel:[phone] Referring Provider: Deangelo Queen, [facility] [address], [place], [address]. tel:[phone] Office/Outpa tient Visit, Est [facility] , [address], [place], [address], [place] tel:[phone] [facility] , Rheumatoid arthritis (chief complaint) Seropositive RAOsteoporos is NOSHigh risk medication monitoring 9 Florina Bright. [facility] [address], [place], [address], [place]. tel:[phone] Referring Provider: Deangelo Queen, [facility] [address], [place], [address]. tel:[phone] Office/Outpa tient Visit, Est [facility] , [address], [place], [address], [place] tel:[phone] [facility] , Rheumatoid arthritis (chief complaint) Seropositive RAOsteoporos is NOSHigh risk medication monitoring 8 Florina Bright. [facility] [address], [place], [address], [place]. tel:[phone] Referring Provider: Deangelo Queen, [facility] [address], [place], [address]. tel:[phone] Office/Outpa tient Visit, Est [facility] , [address], [place], [address], [place] tel:[phone] [facility] , Rheumatoid arthritis (chief complaint) Seropositive RAOsteoporos is NOSHigh risk medication monitoring 8 Florina Bright. [facility] [address], [place], [address], [place]. tel:[phone] Referring Provider: Deangelo Queen, [facility] [address], [place], [address]. tel:[phone] Office/Outpa tient Visit, Est [facility] , [address], [place], [address], [place] tel:[phone] [facility] , Rheumatoid arthritis (chief complaint) Seropositive RAOsteoporos is NOSHigh risk medication monitoring Aug- 8 [facility] Deangelo. [facility] [address], [place], [address], [place]. tel:[phone] Referring Provider: Deangelo Queen, [facility] [address], [place], [address]. tel:[phone] Office/Outpa tient Visit, Est [facility] , [address], [place], [address], [place] tel:[phone] [facility] , Rheumatoid arthritis (chief complaint) Seropositive RAOsteoporos is NOSHigh risk medication monitoring Apr- [facility] Deangelo. [facility] [address], [place], [address], [place]. tel:[phone] Referring Provider: Deangelo Queen, [facility] [address], [place], [address]. tel:[phone] Office/Outpa tient Visit, Est [facility] , [address], [place], [address], [place] tel:[phone] [facility] , Rheumatoid arthritis (chief complaint) Seropositive RAOsteoporos is NOSHigh risk medication monitoring Nov- Florina Deangelo. [facility] [address], [place], [address], [place]. tel:[phone] Referring Provider: Deangelo Queen, [facility] [address], [place], [address]. tel:[phone] Office/Outpa tient Visit, Est [facility] , [address], [place], [address], [place] tel:[phone] [facility] , Rheumatoid arthritis (chief complaint) Seropositive RAOsteoporos is NOSHigh risk medication monitoring 7 Florina Bright. [facility] [address], [place], [address], [place]. tel:[phone] Referring Provider: Deangelo Queen, [facility] [address], [place], [address]. tel:[phone] Office/Outpa tient Visit, Est [facility] , [address], [place], [address], [place] tel:[phone] [facility] , Rheumatoid arthritis (chief complaint) Seropositive RAOsteoporos is NOSHigh risk medication monitoring 6 Florina Bright. [facility] [address], [place], [address], [place]. tel:[phone] Referring Provider: Deangelo Queen, [facility] [address], [place], [address]. tel:[phone] Office/Outpa tient Visit, Est [facility] , [address], [place], [address], [place] tel:[phone] [facility] , Rheumatoid arthritis (chief complaint) Seropositive RAOsteoporos is NOSHigh risk medication monitoring 0201 6 Florina Bright. [facility] [address], [place], [address], [place]. tel:[phone] Referring Provider: Deangelo Queen, [facility] [address], [place], [address]. tel:[phone] Office/Outpa tient Visit, Est [facility] , [address], [place], [address], [place] tel:[phone] [facility] , Rheumatoid arthritis (chief complaint) Seropositive RAOsteoporos is NOSHigh risk medication monitoring 6 [facility] Deangelo. [facility] [address], [place], [address], [place]. tel:[phone] Referring Provider: Deangelo Queen, [facility] [address], [place], [address]. tel:[phone] [facility] , [address], [place], [address], [place] tel:[phone] [facility] , Osteoporosis NOS 6 [facility] Deangelo. [facility] [address], [place], [address], [place]. tel:[phone] Referring Provider: Deangelo Queen, [facility] [address], [place], [address]. tel:[phone] Office/Outpa tient Visit, Est [facility] , [address], [place], [address], [place] tel:[phone] [facility] , Rheumatoid arthritis (chief complaint) Seropositive RATherapeuti c Drug MonitoringOs teoporosis 5 [facility] Deangelo. [facility] [address], [place], [address], [place]. tel:[phone] Referring Provider: Deangelo Queen, [facility] [address], [place], [address]. tel:[phone] Office/Outpa tient Visit, Est [facility] , [address], [place], [address], [place] tel:[phone] [facility] , Rheumatoid Arthritis (chief complaint) Rheumatoid ArthritisOst eoporosisThe rapeutic Drug Monitoring 5 Florina Bright. [facility] [address], [place], [address], [place]. tel:[phone] Referring Provider: Deangelo Queen, [facility], [facility] [address], [place], [address]. tel:[phone] Office/Outpa tient Visit, [facility] , [address], [place], [address], [place] tel:[phone] [facility] , Rheumatoid Arthritis (chief complaint) Rheumatoid ArthritisThe rapeutic Drug MonitoringOs teoporosis 4 Florina Bright. [facility] , [facility] [address], [place], [address], [place]. tel:[phone] Referring Provider: Deangelo Queen, [facility] [address], [place], [address]. tel:[phone] Office/Outpa tient Visit, [facility] , [address], [place], [address], [place] tel:[phone] [facility] , Rheumatoid Arthritis (chief complaint) Rheumatoid ArthritisOst eoporosisThe rapeutic Drug Monitoring 4 Florina Zhongad. [facility] , [facility] [address], [place], [address], [place]. tel:[phone] Referring Provider: Deangelo Queen, [facility] [address], [place], [address]. tel:[phone] Office/Outpa tient Visit, [facility] , [address], [place], [address], [place] tel:[phone] [facility] , Rheumatoid Arthritis (chief complaint) Rheumatoid ArthritisThe rapeutic Drug MonitoringOs teoporosisRa sh and other nonspecific skin eruption 3 [facility] Deangelo. [facility] , [facility] [address], [place], [address], [place]. tel:[phone] Referring Provider: Deangelo Queen, [facility] [address], [place], [address]. tel:[phone] [facility] , [address], [place], [address], [place] tel:[phone] [facility] , No Information 3 Florinadavid Bright. [facility] , [facility] [address], [place], [address], [place]. tel:[phone] Referring Provider: Deangelo Queen, [facility] [address], [place], [address]. tel:[phone] [facility] , [address], [place], [address], [place] tel:[phone] [facility] , No Information 3 [facility] Deangelo. [facility] , [facility] [address], [place], [address], [place]. tel:[phone] Referring Provider: Deangelo Queen, [facility], [facility] [address], [place], [address]. tel:[phone] Office/Outpa tient Visit, [facility] , [address], [place], [address], [place] tel:[phone] [facility] , Rheumatoid Arthritis (chief complaint) Rheumatoid ArthritisOst eoporosisThe rapeutic Drug Monitoring 3 Florina Bright. [facility] , [facility] [address], [place], [address], [place]. tel:[phone] Referring Provider: Deangelo Queen, [facility], [facility] [address], [place], [address]. tel:[phone] Office/Outpa tient Visit, [facility] , [address], [place], [address], [place] tel:[phone] [facility] , Rheumatoid Arthritis (chief complaint) Rheumatoid ArthritisOst eoporosisThe rapeutic Drug MonitoringRa sh and other nonspecific skin eruption 2 Florina Bright. [facility] , [facility] [address], [place], [address], [place]. tel:[phone] Referring Provider: Deangelo Queen, [facility] [address], [place], [address]. tel:[phone] Family History Family Member Type Diagnosis Age At Onset brother 1 Problem (finding) rheumatoid arthritis brother 2 Problem (finding) rheumatoid arthritis Immunizations Vaccine Date Status Comments COVID-19 Pfizer Mar-05-2021 administered Note: 2020 ; Source: Other Provider Payers Payer name Insurance type Covered alliance party ID Belinda núñez(s) [employer] Medicare Advantage/[employer] [id number] Social History Type Description Quantity Date Captured Comments Sex Female Smoking Status No Information Chief Complaint And Reason For Visit No Information Reason For Referral Reason For Referral No Information Plan Of Treatment Date Type Action Status Appointment Elo Ivey BOOKED History Of Present Illness Encounter Date Complaint History Of Prese nt Illness Rheumatoid arthritis Rheumatoid arthritis Rheumatoid arthritis Rheumatoid arthritis Rheumatoid arthritis Rheumatoid arthritis Rheumatoid arthritis Rheumatoid arthritis Rheumatoid arthritis Rheumatoid arthritis Rheumatoid arthritis Rheumatoid arthritis Rheumatoid arthritis Rheumatoid arthritis Rheumatoid arthritis Rheumatoid arthritis Rheumatoid arthritis Rheumatoid arthritis Rheumatoid arthritis Rheumatoid arthritis Rheumatoid arthritis Rheumatoid arthritis Rheumatoid arthritis Rheumatoid arthritis Rheumatoid arthritis Rheumatoid arthritis Functional Status Date Functional Assessmen t No Information Instructions Date Instruction Additional Infor mation No Information Assessments Type Assessment Date No Information Patient Care Teams Name Effective Dates (start - stop) Status Members No Information
--- OUTSIDE RECORDS SUMMARY | 2024-02-19 15:41 | XMS_ITS | Continuity of Care Document ---
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 [facility] [address], [place], [address], [place]. tel:[phone] Office/Outpa tient Visit, Est [facility] , [address], [place], [address], [place] tel:[phone] [facility] , Rheumatoid arthritis (chief complaint) Seropositive RAOsteoporos is NOSElevated liver enzymesCouns elingHigh risk medication monitoring 4 Florina Bright. [facility] [address], [place], [address], [place]. tel:[phone] Referring Provider: Deangelo Queen, [facility] [address], [place], [address]. tel:[phone] Office/Outpa tient Visit, Est [facility] , [address], [place], [address], [place] tel:[phone] [facility] , Rheumatoid arthritis (chief complaint) Seropositive RAOsteoporos is NOSElevated liver enzymesCouns elingHigh risk medication monitoring 4 Florina Bright. [facility] [address], [place], [address], [place]. tel:[phone] Referring Provider: Deangelo Queen, [facility] [address], [place], [address]. tel:[phone] Office/Outpa tient Visit, Est [facility] , [address], [place], [address], [place] tel:[phone] [facility] , Rheumatoid arthritis (chief complaint) Seropositive RAOsteoporos is NOSElevated liver enzymesCouns elingHigh risk medication monitoring 3 Florina Bright. [facility] [address], [place], [address], [place]. tel:[phone] Referring Provider: Deangelo Queen, [facility] [address], [place], [address]. tel:[phone] Office/Outpa tient Visit, Est [facility] , [address], [place], [address], [place] tel:[phone] [facility] , Rheumatoid arthritis (chief complaint) Seropositive RAOsteoporos is NOSElevated liver enzymesCouns elingHigh risk medication monitoring 3 Florina Bright. [facility] [address], [place], [address], [place]. tel:[phone] Referring Provider: Deangelo Queen, [facility] [address], [place], [address]. tel:[phone] Office/Outpa tient Visit, Est [facility] , [address], [place], [address], [place] tel:[phone] [facility] , Rheumatoid arthritis (chief complaint) Seropositive RAOsteoporos is NOSElevated liver enzymesCouns elingHigh risk medication monitoring 3 Florina Bright. [facility] [address], [place], [address], [place]. tel:[phone] Referring Provider: Deangelo Queen, [facility] [address], [place], [address]. tel:[phone] Office/Outpa tient Visit, Est [facility] , [address], [place], [address], [place] tel:[phone] [facility] , Rheumatoid arthritis (chief complaint) Seropositive RAOsteoporos is NOSElevated liver enzymesCouns elingHigh risk medication monitoring Sep- 2 Florina Bright. [facility] [address], [place], [address], [place]. tel:[phone] Referring Provider: Deangelo Queen, [facility] [address], [place], [address]. tel:[phone] Office/Outpa tient Visit, Est [facility] , [address], [place], [address], [place] tel:[phone] [facility] , Rheumatoid arthritis (chief complaint) Seropositive RAOsteoporos is NOSElevated liver enzymesHigh risk medication monitoringCo unseling 2 Florina Bright. [facility] [address], [place], [address], [place]. tel:[phone] Referring Provider: Deangelo Queen, [facility] [address], [place], [address]. tel:[phone] Office/Outpa tient Visit, Est [facility] , [address], [place], [address], [place] tel:[phone] [facility] , Rheumatoid arthritis (chief complaint) Seropositive RAOsteoporos is NOSElevated liver enzymesHigh risk medication monitoringCo unseling 2 Florina Bright. [facility] [address], [place], [address], [place]. tel:[phone] Referring Provider: Deangelo Queen, [facility] [address], [place], [address]. tel:[phone] Office/Outpa tient Visit, Est [facility] , [address], [place], [address], [place] tel:[phone] [facility] , Rheumatoid arthritis (chief complaint) Seropositive RAOsteoporos is NOSElevated liver enzymesHigh risk medication monitoringCo unselingCram p Apr- 1 Florina Bright. [facility] [address], [place], [address], [place]. tel:[phone] Referring Provider: Deangelo Queen, [facility] [address], [place], [address]. tel:[phone] Office/Outpa tient Visit, Est [facility] , [address], [place], [address], [place] tel:[phone] [facility] , Rheumatoid arthritis (chief complaint) Seropositive RAOsteoporos is NOSElevated liver enzymesHigh risk medication monitoringCo unseling 1 Florina Bright. [facility] [address], [place], [address], [place]. tel:[phone] Referring Provider: Deangelo Queen, [facility] [address], [place], [address]. tel:[phone] Office/Outpa tient Visit, Est [facility] , [address], [place], [address], [place] tel:[phone] [facility] , Rheumatoid arthritis (chief complaint) Seropositive RAOsteoporos is NOSElevated liver enzymesHigh risk medication monitoringCo unseling Mar-0 1 Florina Bright. [facility] [address], [place], [address], [place]. tel:[phone] Referring Provider: Deangelo Queen, [facility] [address], [place], [address]. tel:[phone] Office/Outpa tient Visit, Est [facility] , [address], [place], [address], [place] tel:[phone] [facility] , Rheumatoid arthritis (chief complaint) Seropositive RAOsteoporos is NOSElevated liver enzymesHigh risk medication monitoring Nov-0 0 Florina Bright. [facility] [address], [place], [address], [place]. tel:[phone] Referring Provider: Deangelo Queen, [facility] [address], [place], [address]. tel:[phone] Office/Outpa tient Visit, Est [facility] , [address], [place], [address], [place] tel:[phone] [facility] , Rheumatoid arthritis (chief complaint) Seropositive RAOsteoporos is NOSElevated liver enzymesHigh risk medication monitoring Nate-0 6202 0 Florina Bright. [facility] [address], [place], [address], [place]. tel:[phone] Referring Provider: Deangelo Queen, [facility] [address], [place], [address]. tel:[phone] Office/Outpa tient Visit, Est [facility] , [address], [place], [address], [place] tel:[phone] [facility] , Rheumatoid arthritis (chief complaint) Seropositive RAOsteoporos is NOSElevated liver enzymesHigh risk medication monitoring 0 Florina Bright. [facility] [address], [place], [address], [place]. tel:[phone] Referring Provider: Deangelo Queen, [facility] [address], [place], [address]. tel:[phone] Office/Outpa tient Visit, Est [facility] , [address], [place], [address], [place] tel:[phone] [facility] , Rheumatoid arthritis (chief complaint) Seropositive RAOsteoporos is NOSHigh risk medication monitoringEl evated liver enzymes 0-201 9 Florina Bright. [facility] [address], [place], [address], [place]. tel:[phone] Referring Provider: Deangelo Queen, [facility] [address], [place], [address]. tel:[phone] Office/Outpa tient Visit, Est [facility] , [address], [place], [address], [place] tel:[phone] [facility] , Rheumatoid arthritis (chief complaint) Seropositive RAOsteoporos is NOSHigh risk medication monitoring 9 Florina Bright. [facility] [address], [place], [address], [place]. tel:[phone] Referring Provider: Deangelo Queen, [facility] [address], [place], [address]. tel:[phone] Office/Outpa tient Visit, Est [facility] , [address], [place], [address], [place] tel:[phone] [facility] , Rheumatoid arthritis (chief complaint) Seropositive RAOsteoporos is NOSHigh risk medication monitoring 8 Florina Bright. [facility] [address], [place], [address], [place]. tel:[phone] Referring Provider: Deangelo Queen, [facility] [address], [place], [address]. tel:[phone] Office/Outpa tient Visit, Est [facility] , [address], [place], [address], [place] tel:[phone] [facility] , Rheumatoid arthritis (chief complaint) Seropositive RAOsteoporos is NOSHigh risk medication monitoring 8 Florina Bright. [facility] [address], [place], [address], [place]. tel:[phone] Referring Provider: Deangelo Queen, [facility] [address], [place], [address]. tel:[phone] Office/Outpa tient Visit, Est [facility] , [address], [place], [address], [place] tel:[phone] [facility] , Rheumatoid arthritis (chief complaint) Seropositive RAOsteoporos is NOSHigh risk medication monitoring Aug- 8 [facility] Deangelo. [facility] [address], [place], [address], [place]. tel:[phone] Referring Provider: Deangelo Queen, [facility] [address], [place], [address]. tel:[phone] Office/Outpa tient Visit, Est [facility] , [address], [place], [address], [place] tel:[phone] [facility] , Rheumatoid arthritis (chief complaint) Seropositive RAOsteoporos is NOSHigh risk medication monitoring Apr- [facility] Deangelo. [facility] [address], [place], [address], [place]. tel:[phone] Referring Provider: Deangelo Queen, [facility] [address], [place], [address]. tel:[phone] Office/Outpa tient Visit, Est [facility] , [address], [place], [address], [place] tel:[phone] [facility] , Rheumatoid arthritis (chief complaint) Seropositive RAOsteoporos is NOSHigh risk medication monitoring Nov- Florina Deangelo. [facility] [address], [place], [address], [place]. tel:[phone] Referring Provider: Deangelo Queen, [facility] [address], [place], [address]. tel:[phone] Office/Outpa tient Visit, Est [facility] , [address], [place], [address], [place] tel:[phone] [facility] , Rheumatoid arthritis (chief complaint) Seropositive RAOsteoporos is NOSHigh risk medication monitoring 7 Florina Bright. [facility] [address], [place], [address], [place]. tel:[phone] Referring Provider: Deangelo Queen, [facility] [address], [place], [address]. tel:[phone] Office/Outpa tient Visit, Est [facility] , [address], [place], [address], [place] tel:[phone] [facility] , Rheumatoid arthritis (chief complaint) Seropositive RAOsteoporos is NOSHigh risk medication monitoring 6 Florina Bright. [facility] [address], [place], [address], [place]. tel:[phone] Referring Provider: Deangelo Queen, [facility] [address], [place], [address]. tel:[phone] Office/Outpa tient Visit, Est [facility] , [address], [place], [address], [place] tel:[phone] [facility] , Rheumatoid arthritis (chief complaint) Seropositive RAOsteoporos is NOSHigh risk medication monitoring 0201 6 Florina Bright. [facility] [address], [place], [address], [place]. tel:[phone] Referring Provider: Deangelo Queen, [facility] [address], [place], [address]. tel:[phone] Office/Outpa tient Visit, Est [facility] , [address], [place], [address], [place] tel:[phone] [facility] , Rheumatoid arthritis (chief complaint) Seropositive RAOsteoporos is NOSHigh risk medication monitoring 6 [facility] Deangelo. [facility] [address], [place], [address], [place]. tel:[phone] Referring Provider: Deangelo Queen, [facility] [address], [place], [address]. tel:[phone] [facility] , [address], [place], [address], [place] tel:[phone] [facility] , Osteoporosis NOS 6 [facility] Deangelo. [facility] [address], [place], [address], [place]. tel:[phone] Referring Provider: Deangelo Queen, [facility] [address], [place], [address]. tel:[phone] Office/Outpa tient Visit, Est [facility] , [address], [place], [address], [place] tel:[phone] [facility] , Rheumatoid arthritis (chief complaint) Seropositive RATherapeuti c Drug MonitoringOs teoporosis 5 [facility] Deangelo. [facility] [address], [place], [address], [place]. tel:[phone] Referring Provider: Deangelo Queen, [facility] [address], [place], [address]. tel:[phone] Office/Outpa tient Visit, Est [facility] , [address], [place], [address], [place] tel:[phone] [facility] , Rheumatoid Arthritis (chief complaint) Rheumatoid ArthritisOst eoporosisThe rapeutic Drug Monitoring 5 Florina Bright. [facility] [address], [place], [address], [place]. tel:[phone] Referring Provider: Deangelo Queen, [facility] [address], [place], [address]. tel:[phone] Office/Outpa tient Visit, Est [facility] , [address], [place], [address], [place] tel:[phone] [facility] , Rheumatoid Arthritis (chief complaint) Rheumatoid ArthritisThe rapeutic Drug MonitoringOs teoporosis 4 Florina Bright. [facility] [address], [place], [address], [place]. tel:[phone] Referring Provider: Deangelo Queen, [facility] [address], [place], [address]. tel:[phone] Office/Outpa tient Visit, Est [facility] , [address], [place], [address], [place] tel:[phone] [facility] , Rheumatoid Arthritis (chief complaint) Rheumatoid ArthritisOst eoporosisThe rapeutic Drug Monitoring 4 Florina Zhongad. [facility] [address], [place], [address], [place]. tel:[phone] Referring Provider: Deangelo Queen, [facility] [address], [place], [address]. tel:[phone] Office/Outpa tient Visit, Est [facility] , [address], [place], [address], [place] tel:[phone] [facility] , Rheumatoid Arthritis (chief complaint) Rheumatoid ArthritisThe rapeutic Drug MonitoringOs teoporosisRa sh and other nonspecific skin eruption 3 [facility] Deangelo. [facility] [address], [place], [address], [place]. tel:[phone] Referring Provider: Deangelo Queen, [facility] [address], [place], [address]. tel:[phone] [facility] , [address], [place], [address], [place] tel:[phone] [facility] , No Information 3 Florinadavid Bright. [facility] [address], [place], [address], [place]. tel:[phone] Referring Provider: Deangelo Queen, [facility] [address], [place], [address]. tel:[phone] [facility] , [address], [place], [address], [place] tel:[phone] [facility] , No Information 3 [facility] Deangelo. [facility] [address], [place], [address], [place]. tel:[phone] Referring Provider: Deangelo Queen, [facility] [address], [place], [address]. tel:[phone] Office/Outpa tient Visit, Est [facility] , [address], [place], [address], [place] tel:[phone] [facility] , Rheumatoid Arthritis (chief complaint) Rheumatoid ArthritisOst eoporosisThe rapeutic Drug Monitoring 3 Florina Bright. [facility] [address], [place], [address], [place]. tel:[phone] Referring Provider: Deangelo Queen, [facility] [address], [place], [address]. tel:[phone] Office/Outpa tient Visit, Est [facility] , [address], [place], [address], [place] tel:[phone] [facility] , Rheumatoid Arthritis (chief complaint) Rheumatoid ArthritisOst eoporosisThe rapeutic Drug MonitoringRa sh and other nonspecific skin eruption 2 Florina Bright. [facility] [address], [place], [address], [place]. tel:[phone] Referring Provider: Deangelo Queen, [facility] [address], [place], [address]. tel:[phone] Family History Family Member Type Diagnosis Age At Onset brother 1 Problem (finding) rheumatoid arthritis brother 2 Problem (finding) rheumatoid arthritis Immunizations Vaccine Date Status Comments COVID-19 Pfizer Mar-05-2021 administered Note: 2020 ; Source: Other Provider Payers Payer name Insurance type Covered republican ID Belinda núñez(s) [employer] Medicare Advantage/[employer] [id number] Social History Type Description Quantity Date Captured [...]
== END 2024-02-19 15:41 | disposition home or self-care (01) ==
LOC: ED 15:38
PROVIDERS: Emergency Provider Family Medicine; PCP Surgery
DX: L08.89 Other specified local infections of the skin and subcutaneous tissue (principal)
CPT/HCPCS: 96372; 99283; 99284; J0696

== ENCOUNTER 2024-05-10 08:00 | Outpatient (RCR) | payer MEDICARE, BC, SELFPAY ==
[2024-01-05 08:15] VITALS: BP 134/81; PULSE 62; RESP 16; TEMP 36.4; O2SAT 98
--- NOTE | 2024-01-05 16:21 | ONC.NURNOTE ---
Pt here for remicade, pt states she had surgery on her finger on 01/03/24 at [facility]. Retail Loss Prevention Officer called and spoke to pt's rheumatology office and per her biometric fingerprinting technician she should wait 1-2 weeks after surgery to resume remicade due to the risk of infection. Pt rescheduled and verbalized plan of care.
[2024-01-19 07:54] VITALS: BP 96/65; PULSE 73; RESP 16; TEMP 36.6; O2SAT 95
[2024-01-19] MEDS: ACETAMINOPHEN 325 MG TABLET 650 MG PO (08:11)
[2024-01-19] MEDS: diphenhydrAMINE 25 MG CAPSULE PO (08:11)
[2024-01-19] MEDS: 0.9 % SODIUM CHLORIDE 250 ml 250 ML 35 ML IV (08:20)
[2024-03-15] MEDS: diphenhydrAMINE 25 MG CAPSULE PO (08:00)
[2024-03-15] MEDS: ACETAMINOPHEN 325 MG TABLET 650 MG PO (08:00)
[2024-03-15 08:13] VITALS: BP 125/59; PULSE 72; RESP 16; TEMP 36.8; O2SAT 98
[2024-03-15] MEDS: 0.9 % SODIUM CHLORIDE 250 ml 250 ML 35 ML IV (08:15)
--- NOTE | 2024-05-10 09:03 | ONC.NURNOTE ---
Pt left message stating she is cancelling her Remicade infusion today. Churn Driller called pt back and pt stated she is now receiving her infusion at the [facility].
== END 2024-07-03 23:59 | disposition home or self-care (01) ==
LOC: CCIC 08:00
PROVIDERS: PCP Surgery; Referring Provider Surgery; Visit Provider Clinical Nurse Specialist
DX: M06.9 Rheumatoid arthritis, unspecified (principal)
CPT/HCPCS: 96413; 96415; A9270; J7050

== ENCOUNTER 2024-08-24 16:48 | Emergency (ER) | payer MEDICARE, BC, SELFPAY ==
[2024-08-24 17:02] VITALS: BP 118/59; PULSE 80; RESP 18; TEMP 36.2; O2SAT 97; BMI 22.9
--- NOTE | 2024-08-24 17:07 | CRLHL7_ITS ---
For Patients: As a result of the Cures Act, medical imaging exams and procedure reports are released immediately into your electronic medical record. You may view this report before your referring provider. If you have questions, please contact your health care provider. Indication: Pain Technique: Left humerus, two views Comparison: None. Findings: Bones: Reverse shoulder arthroplasty with some surrounding heterotopic ossification. Inferior scapular notching. Hardware is intact. Joint spaces: Mild acromioclavicular joint osteoarthritis. Soft tissues: Unremarkable. Impression: No acute fracture. There is inferior scapular notching, which can result in pain. Dictated by Sophy Ornelas MD @ 08/24/2024 5:46:15 PM (Electronically Signed)
--- NOTE | 2024-08-24 18:30 | ED_ITS ---
HPI - Extremity Injury (Upper) General Date Seen: 08/24/24 Chief Complaint: Extremity Pain/Injury, Upper Stated Complaint: Fall - left shoulder pain Time Seen by Provider: 08/24/24 17:54 Source: patient Mode of arrival: ambulatory Limitations: no limitations History of Present Illness HPI narrative: Patient is a 78-year-old female presenting for left upper arm pain. 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 She denies hitting her head. She has had pain to the mid humerus portion since then. States the pain seems to be there whenever she tries to move her arm. Denies any shoulder pain. She did have a shoulder replacement done 2.5 years ago. No complications from the surgery. Denies any numbness to the left arm. No other concerns noted. Denies elbow, wrist pain. Related Data Home Medications ?Medication ?Instructions ?Recorded ?Confirmed atorvastatin 40 mg tablet 40 mg PO DAILY 02/25/22 01/28/24 levothyroxine 88 mcg tablet 88 mcg PO DAILY 02/25/22 01/28/24 (Euthyrox) methotrexate sodium 2.5 mg tablet 15 mg PO DIRECTED 02/25/22 01/28/24 folic acid 1 mg tablet 1 mg 08/16/22 05/27/23 aspirin 81 mg tablet,delayed 81 mg PO QDAY 05/27/23 01/28/24 release (Adult Low Dose Aspirin) Allergies Allergy/AdvReac Type Severity Reaction Status Date / Time oxycodone (From OxyContin) AdvReac Intermediate Vomiting Verified 01/28/24 15:46 Review of Systems Narrative: Pertinent systems reviewed and were negative unless stated in HPI PFSH PFSH Medical History Malignant lung neoplasm ?C34.90 - Malignant neoplasm of unspecified part of unspecified bronchus or lung (ICD-10) Carpal tunnel syndrome ?G56.00 - Carpal tunnel syndrome, unspecified upper limb (ICD-10) Osteoporosis ?M81.0 - Age-related osteoporosis without current pathological fracture (ICD- 10) Hypothyroid ?E03.9 - Hypothyroidism, unspecified (ICD-10) Surgical History 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 Moist mucous membranes. CV: Radial pulses +2 and equal bilaterally MSK:Extremities w/o deformity, mild tenderness to the left mid humerus. For range of motion to the elbow and shoulder. Skin: Warm, Dry. No rashes or lesions. Neuro: Normal Muscle tone, No focal neurological deficits. Psych: Awake, Alert, & Oriented x3. Appropriate mood and affect. Const: Vital Signs, click to edit/add: Vital Signs - 24 hr 08/24/24 17:02 Temperature 97.1 F L Pulse Rate [Pulse Oximeter] 80 Respiratory Rate 18 Blood Pressure [Ri ght Upper Arm] 118/59 L Pulse Oximetry 97 Oxygen Delivery Me thod Room Air Course Vital Signs Vital signs: Initial Vital Signs Temperature 97.1 F L 08/24/24 17:02 Temperature Source Temporal Artery Scan 08/24/24 17:02 Pulse Rate 80 08/24/24 17:02 Respiratory Rate 18 08/24/24 17:02 Blood Pressure 118/59 L 08/24/24 17:02 Blood Pressure Mean 78 08/24/24 17:02 Blood Pressure Position Sitting 08/24/24 17:02 Pulse Oximetry 97 08/24/24 17:02 Oxygen Delivery Method Room Air 08/24/24 17:02 Vital Signs Temperature 97.1 F L 08/24/24 17:02 Pulse Rate 80 08/24/24 17:02 Respiratory Rate 18 08/24/24 17:02 Blood Pressure 118/59 L 08/24/24 17:02 Pulse Oximetry 97 08/24/24 17:02 Oxygen Delivery Method Room Air 08/24/24 17:02 Temperature 97.1 F L 08/24/24 17:02 Pulse Rate 80 08/24/24 17:02 Respiratory Rate 18 08/24/24 17:02 Blood Pressure 118/59 L 08/24/24 17:02 Pulse Oximetry 97 08/24/24 17:02 Oxygen Delivery Method Room Air 08/24/24 17:02 MDM - Extremity Injury (Upper) MDM Narrative Medical decision making narrative: Patient is a 78-year-old female presenting to emergency department for left arm pain. She is neurovascular intact. Humerus x-ray ordered triage by nursing staff. Based on my exam and history I do not believe further imaging is necessary. It was reviewed by myself and the radiologist showing no acute concerning abnormalities. I do not believe she has acute fractures and pain is likely from underlying contusion. I offered the patient a sling but she states she has 1 at home she will use. Is not requiring any pain medication at this time. She states the pain is tolerable. She will be discharged. Discharge Plan Discharge Clinical Impression: Arm pain, left Patient Disposition: Home, Self-Care Condition: Stable Instructions: Arm Pain (ED) Additional Instructions: Your x-ray showing no acute concerning abnormalities. I believe his symptoms are from a underlying contusion that will resolve on its own. Return to emergency department for new or worsening symptoms. You can wear a sling as needed for comfort. Prescriptions: No Action aspirin [Adult Low Dose Aspirin] 81 mg tablet,delayed release (DR/EC) 81 mg PO QDAY atorvastatin 40 mg tablet 40 mg PO DAILY Patient Comments: TAKE 1 TABLET BY MOUTH ONCE DAILY levothyroxine [Euthyrox] 88 mcg tablet 88 mcg PO DAILY Patient Comments: TAKE 1 TABLET BY MOUTH BEFORE BREAKFAST methotrexate sodium 2.5 mg tablet 15 mg PO DIRECTED Patient Comments: TAKE 7 TABLETS BY MOUTH ONCE A WEEK folic acid 1 mg tablet 1 mg Patient Comments: TAKE 2 TABLETS BY MOUTH IN THE MORNING Follow Up/Referrals: Paco Lynch MD [Primary Care Provider] - Stand Alone Forms: [email or web address] Info Instructions
--- OUTSIDE RECORDS SUMMARY | 2024-08-24 18:48 | XMS_ITS | Clinical Summary ---
Author Organization [facility] Address [place], [place] [address] Care Team Providers Care Steel Tester Name Role Phone Deangelo Heaton MD Unavailable [phone] Paco Lynch MD Primary Care Provider [phone] Osman Suarez MD Unavailable [phone] Carolynn Crawford MD Unavailable Estrellita Jimenez NP Unavailable Miguel Angel Faust MD Unavailable [phone] Allergies Active Allergy Reactions Criticality Noted Date Comments Oxycodone Vomiting 11/27/2021 Medications multivitamin folic acid 0.4 mg Take 1 Tablet by mouth once daily. Contains 0.4 mg of Folic Acid. 0 07/19/20 07 Active inFLIXimab (Remicade) 100 mg injectionIndicati ons:Rheumatoid arthritis, involving unspecified site, unspecified whether rheumatoid factor present (HC) 200 mg q 8 weeks 20 mL 08/19/19 23 Active levothyroxine (SYNTHROID) 88 mcg tabletIndications :Acquired hypothyroidism Take 1 Tablet (88 mcg) by mouth before breakfast. 90 Tablet 3 12/02/19 24 Active acetaminophen (TYLENOL EXTRA STRGTH) 500 mg tablet Take 1,000 mg by mouth 3 times daily if needed. Max acetaminophen dose: 4000mg in 24 hrs. Active aspirin (ECOTRIN) 81 mg enteric coated tablet Take 81 mg by mouth once daily with a meal. Active calcium carbonate-choleca lciferol, 600mg-200 units, (CALTRATE-600 + VIT D) tablet Take 2 Tablets by mouth once daily with a meal. Active folic acid 1 mg tabletIndications :Rheumatoid arthritis involving multiple sites with positive rheumatoid factor (HC),High risk medication use Take 2 Tablets (2 mg) by mouth once daily. 180 Tablet 3 03/22/20 24 Active omeprazole 20 mg tabletIndications :Gastroesophageal reflux disease, unspecified whether esophagitis present Take 1 Tablet (20 mg) by mouth once daily before a meal. 90 Tablet 3 05/01/20 24 Active albuterol HFA (PRO-AIR; VENTOLIN; PROVENTIL) 90 mcg/actuation inhalerIndication s:DEGROOT (dyspnea on exertion) Inhale 1 Puff by mouth every 4 hours if needed for Shortness Of Breath. 9 g 1 05/01/20 24 Active atorvastatin (LIPITOR) 40 mg tabletIndications :Hyperlipidemia, unspecified hyperlipidemia type Take 1 Tablet (40 mg) by mouth once daily. 90 Tablet 3 05/01/20 24 Active omeprazole (PRILOSEC) 20 mg Delayed-Release capsule Take 20 mg by mouth once daily before a meal. 05/01/20 24 Active gabapentin (NEURONTIN) 100 mg capsuleIndication s:Leg cramping Take 2 Capsules (200 mg) by mouth at bedtime. 60 Capsule 1 05/21/20 24 Active methotrexate (RHEUMATREX) 2.5 mg tabletIndications :Rheumatoid arthritis involving multiple sites with positive rheumatoid factor (HC) Take 6 Tablets (15 mg) by mouth once weekly. Takes on Fridays. 78 Tablet 07/27/20 24 Active nitrofurantoin macrocrystaL 50 mg capsuleIndication s:Recurrent UTI TAKE AFTER INTERCOURSE TO PREVENT BLADDER INFECTIONS 30 Capsule 08/05/20 24 Active methotrexate (RHEUMATREX) 2.5 mg tabletIndications :Rheumatoid arthritis involving multiple sites with positive rheumatoid factor (HC) Take 6 Tablets (15 mg) by mouth once weekly. Takes on Fridays. 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 Romie Arellano 12/03/2021 Closed fracture of proximal end of left humerus with routine healing 11/27/2021 Hyperparathyroidism, unspecified 11/27/2021 Non-occlusive coronary artery disease 09/17/2020 Overview (09/17/2020): Mild per angiogram 08/12/20 Mixed hyperlipidemia 08/05/2020 Family history of colon cancer 04/07/2016 Overview (08/19/2022): Colonoscopy 03/2016 normal repeat in 5 years Cologuard negative 08/2021 Rheumatoid arthritis involvi ng multiple sites with positive rheumatoid factor 08/30/2008 Malignant neoplasm of upper lobe of right lung 1 09/19/2006 Overview (03/01/2017): 1998 - s/p thoracotomy and partial resection; Gets chest xray every 2 years to monitor Unspecified hypothyroidism 07/19/2007 Osteoporosis 05/08/2004 Overview (04/04/2013): BONE MINERAL DENSITY 08/24/2010 at Rheumatology office. 08/25/2010 Bone mineral density done at Rheumatology office 04/04/2013 Resolved Problems Problem Noted Date Diagnosed Date Resolved Date Wound infection after surgery 01/31/2024 05/01/2024 Chest pain at rest 08/05/2020 3 Positive cardiac stress test 08/05/2020 05/01/2024 Lung nodule 05/23/2020 08/17/2021 LBP radiating to left leg 08/11/2011 Unspecified gastritis and ga stroduodenitis without mention of hemorrhage 08/11/2011 08/14/2012 Family history of colonic polyps 08/22/2009 04/07/2016 Overview (08/22/2009): Colonoscopy 08/2009 normal repeat in 5 years Symptomatic menopausal or fe male climacteric states 07/19/2007 05/01/2024 Routine general medical exam ination at a health care facility 07/19/2007 09/06/2016 Overview (07/19/2007): flexible sigmoidoscopy 10/13/2000 BMD 05/2004 Screening for lipoid disorders 07/19/2007 09/06/2016 Encounters Date Type Department Care Team Description 08/21/2024 10:43 AM BUILDING CLEANER - 08/21/2024 11:59 PM BUILDING CLEANER Hospital Encounter [facility] [address] [place] [address] Abnormal SPEP; Monoclonal gammopathy 08/21/2024 Travel 08/13/[address] [facility] [address] [place] [address] Miguel Angel Faust MD Results 08/13/[address] [facility] [address] [place] [address] Miguel Angel Faust MD <No scans attached> 08/09/2024 9:30 AM BUILDING CLEANER Office Visit [facility] [address] [place] [address] Miguel Angel Faust MD Follow Up 08/09/2024 Travel 07/30/2024 Refill [facility] [address] [place] [address] Paco Lynch MD Refill Request (Nitrofurantoin Macrocrystal) 07/27/[address] [facility] [address] [place] [address] Miguel Angel Faust MD Refill Request 07/02/2024 11:30 AM BUILDING CLEANER Office Visit [facility] [address] [place] [address] Infusion Therapy (Remicade 3.5mg/kg) 07/02/2024 Travel 06/15/[address] [facility] [address] [place] [address] Miguel Angel Faust MD Infusion Therapy 06/13/2024 Telephone [facility] [address] [place], [place] [id number] Miguel Angel Faust MD Infusion Therapy 05/29/2024 Telephone [facility] [place] [address] [place] [address] Elliot Andino MD forms from Last 3 Months Immunizations Name Administration Dates Next Due COVID-19 vaccine (SCOUPY NTCopyRightNow 30mcg/0.3mL) YOEL MDV 05/22/2021 Influenza A (H1N1), Inactivated 07/24/2009 Influenza A (H1N1), Inactiva aiyana (Age >=3 Years) 07/24/2009 Influenza, IIV3 (Age 6-35 mos) 07/24/2009 Influenza, IIV3 (Age >=3 years) 07/11/20 12,08/11/2011,07/28/2010,2008,07/22/2008,07/19/2007,06/20/2006,1 08/10/2004 Influenza, Inactivated AIIV4 (Age 65+ Years) Preserv Free 08/23/2023,05/22/2021,05/13/2020 Influenza, Inactivated IIV3 (Age 65+ Years) Preserv Free 05/01/2024,04/17/2019 Pneumococcal Poly,23-Valent (Pneumovax) 02/24/2016,06/10/2005 Pneumococcal conj 13-Valent (Prevnar 13) 11/25/2014 Td (Age >=7 Years) 05/12/2004 Tdap 11/24/2021,07/11/2012 Zoster (Shingrix-RZV, recombinant) 08/22/2018,,09/19/2017 Zoster (Zostavax-ZVL, live) 07/11/2012 Family History Medical History Relation Name Comments Diabetes Brother 2 Ramiro Heart Disease Brother 2 Ramiro Hypertension Brother 2 Ramiro 71 yo [place] 2007 Heart attack Brother 3 Bill Hypertension [...] Answer Date Recorded PHQ-2 TOTAL SCORE 0 05/01/2024 Social Connections Answer Date Recorded Do you often feel lonely or isolated from those around you? 0 08/23/2023 Financial Resource Strain Answer Date R ecorded Difficulty of Paying Living Expenses 3 08/23/2023 Difficulty of Paying Living Expenses Not on file 08/23/2023 Food Insecurity Answer Date Recorded Do you worry your food will run out before you are able to buy more? 1 08/23/2023 Transportation Needs Answer Date Record ed Does lack of transportation keep you from medica l appointments? 1 08/23/2023 Does lack of transportation keep you from work, meetings or getting things that you need? 1 08/23/2023 Housing Stability Answer Date Recorded What is your housing situation today? 1 08/23/2023 Interpersonal Safety Answer Date Record ed Are you being hit, kicked, p ushed or yelled at (see row info)? No 01/29/2024 Interpersonal Safety Abuse 12 - 18 Not on file 01/29/2024 Interpersonal Safety Ambulatory Vulnerability No t on file 01/29/2024 Utilities Answer Date Recorded Do you have trouble paying f or utilities (for example, heat, electricity, water, phone)? 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 Not on file Not on file Obstetrics History Para Term AB IAB SAB Ectopic Multiple Livin g Live Births 3 3 3 Date Outcome GA Total Labor Labor/2nd/3rd Weight Sex Type Anes PTL Antonia A1 A5 Name Clin Para Para Para Last Filed Vital Signs Vital Sign Reading Time Taken Comments Blood Pressure 116/64 08/09/2024 9:24 AM BUILDING CLEANER Pulse 80 08/09/2024 9:24 AM BUILDING CLEANER Temperature 37 C (98.6 F) 07/02/2024 2:22 PM BUILDING CLEANER Respiratory Rate 16 05/01/2024 2:05 PM CDT Oxygen Saturation 98% 08/09/2024 9:24 AM BUILDING CLEANER Inhaled Oxygen Concentration - - Weight 63.4 kg (139 lb 11.2 oz) 08/09/2024 9:24 AM BUILDING CLEANER Height 157 cm (5' 1.81) 08/09/2024 9:24 AM BUILDING CLEANER Body Mass Index 25.71 08/09/2024 9:24 AM BUILDING CLEANER Plan of Treatment Upcoming Encounters Date Type Department Care Team (Late st Contact Info) Description 08/28/2024 10:45 AM BUILDING CLEANER Office Visit [facility] [address] [place] [address] Estrellita Jimenez, MUTUEL CLERK [address] [place] [address] 08/30/2024 9:00 AM BUILDING CLEANER Office Visit [facility] [address] [place] [address] 10/23/2024 10:00 AM CDT Office Visit [facility] [address] [place] [address] 12/18/2024 9:30 AM CDT Office Visit [facility] [id number] [place] [address] [place] [address] [place] [address] [place] [address] 12/18/2024 10:00 AM CDT Office Visit [facility] [address] [place] [address] 12/18/2024 1:00 PM CDT Nurse/Clinic Staff Only [facility] [address] [place] [address] Health Maintenance Due Date Last Done Comments RSV vaccine for adults or (1 - 1-dose 75+ series) 10/30/2022 COVID-19 vaccine series ( season) 2024 05/22/2021, 2020, 10/10/2020 Medicare Wellness for age 65+ 05/02/2025, 03/28/2023, 08/17/2021, Additional history exists Depression screening for age 12+ 05/10/2025 05/10/2024, 05/04/2024, 05/04/2024, Additional history exists BMI (ht and wt on same day) for age 18+ 08/09/2025 08/09/2024, 05/03/2024, 05/01/2024, Additional history exists Tetanus booster 11/25/2031 11/24/2021, 12/11/2011, 05/12/2004 Pneumococcal series for age 50+ Completed 02/24/2016, 11/25/2014, 06/10/2005 Zoster (shingles) series for age 50+ Completed 08/22/2018, 05/06/2018, 09/19/2017, Additional history exists Tdap Completed 11/24/2021, 07/11/2012 Hepatitis C screening for ag e 18-79 Completed 03/22/2024, 08/30/2008 DEXA/DXA scan for age 65+ Completed 2023, 05/15/2020, 08/13/2015, Additional history exists Influenza for age 65+ Completed 05/01/2024 , 08/23/2023, 05/22/2021, Additional history exists Medical Devices Implanted Type Area Collision Worker Device Identifier Shelf Expiration Date Model / Serial / Lot Fxbridge Tuberosity Repair System Implanted:Qty: 2 on 11/30/2021 by Romie Arellano MD at [facility] Left: Shoulder 06/07/2028 [id number]-[id number] / / [id number] Description:FXBRIDGE TUBEROS ITY REPAIR SYSTEM Humeral Insert Comb Mod Glenoid Sys Implanted:Qty: 1 on 11/30/2021 by Romie Arellano MD at [facility] Left: Shoulder 04/07/2024 AR-9503-3 633-3 / / [id number] Description:HUMERAL INSERT C OMB MOD GLENOID SYS Screw Locking 5.5 X 36 Implanted:Qty: 1 on 11/30/2021 by Romie Arellano MD at [facility] Left: Shoulder AR-9563-3 6 / / Description:SCREW LOCKING 5. 5 X 36 Screw Modular 30mm Implanted:Qty: 1 on 11/30/2021 by Romie Arellano MD at [facility] Left: Shoulder AR-9561-3 0S / / [id number] Description:SCREW MODULAR 30 MM Baseplate Modular 24mm Implanted:Qty: 1 on 11/30/2021 by Romie Arellano MD at [facility] Left: Shoulder AR-9560-2 4-2 88 Description:BASEPLATE MODULA R 24MM Screw Locking 5.5 X 32 Implanted:Qty: 1 on 11/30/2021 by Roime Arellano MD at [facility] Left: Shoulder 06/07/2026 AR-9563-3 2 [id number] Description:SCREW LOCKING 5. 5 X 32 Fiber Tape Cerclage 12mm Tigerlink Implanted:Qty: 1 on 11/30/2021 by Romie Arellano MD at [facility] Left: Shoulder [id number] / / [id number] Description:FIBER TAPE CERCL AGE 12MM TIGERLINK Modular Glenoid Sys, Glenosphere 33/24 Implanted:Qty: 1 on 11/30/2021 by Romie Arellano MD at [facility] Left: Shoulder 08/07/2024 AR-9564-2 433 / / [id number] Description:MODULAR GLENOID SYS, GLENOSPHERE 33/24 Shoulder Impl Suture Cup 36 Neutral Implanted:Qty: 1 on 11/30/2021 by Romie Arellano MD at [facility] Left: Shoulder 03/07/2026 [id number]- 36CPC / / [id number] Description:SHOULDER IMPL WHITTEN TURE CUP 36 NEUTRAL Humeral Stem Univers Revers Implanted:Qty: 1 on 11/30/2021 by Romie Arellano MD at [facility] Left: Shoulder 08/07/2025 AR-9501-0 9P / / [id number] Description:HUMERAL STEM UNI VERS REVERS K-Wire .795x6te Dbl Trocar Smooth - [id number] Implanted:Qty: 2 on 01/03/2024 by Elliot Andino MD at [facility] Research for [employer] [facility] [id number] / / Description:Load [id number] Procedures Procedure Name Priority Date/Time Associated Diagnosis Comments CBC WITH AUTO DIFFERENTIAL Timed 08/21/2024 11:05 AM BUILDING CLEANER Abnormal SPEP Monoclonal gammopathy IMMUNOGLOBULINS FREE LT CHAIN SERUM Today 08/21/2024 11:05 AM BUILDING CLEANER Abnormal SPEP Monoclonal gammopathy IGG Today 08/21/2024 11:05 AM BUILDING CLEANER Abnormal SPEP Monoclonal gammopathy PROTEIN ELP,SERUM Today 08/21/2024 11:05 AM BUILDING CLEANER Abnormal SPEP Monoclonal gammopathy COMP METABOLIC PANEL Today 08/21/2024 11:05 AM BUILDING CLEANER Abnormal SPEP Monoclonal gammopathy CBC WITH AUTO DIFFERENTIAL Today 08/21/2024 11:05 AM BUILDING CLEANER Abnormal SPEP Monoclonal gammopathy HEPATIC FUNCTION PANEL STAT 10:09 AM BUILDING CLEANER Rheumatoid arthritis involving multiple sites with positive rheumatoid factor (HC) C-REACTIVE PROTEIN Routine 08/09/2024 9: 58 AM BUILDING CLEANER Rheumatoid arthritis involving multiple sites with positive rheumatoid factor (HC) DC BLOOD COUNT COMPLETE AUTO&AUTO DIFRNTL WBC STAT 08/09/2024 9:57 AM BUILDING CLEANER Rheumatoid arthritis involving multiple sites with positive rheumatoid factor (HC) BASIC METABOLIC PANEL Add On 08/09/2024 12:00 AM BUILDING CLEANER Medication monitoring encounter XR DXA BONE DENSITY 2 SITES AXIAL Routine 04/12/2024 10:09 AM CDT Osteoporosis, unspecified osteoporosis type, unspecified pathological fracture presence Multiple fractures ANTI HCV Routine 03/22/2024 11:25 AM CDT [facility]CC current use of immunosuppressive drug from Last 3 Months or Most Recently Relevant to Health Maintenance Results * CBC WITH AUTO DIFFERENTIAL (08/21/2024 11:05 AM [facility]) WHITE BLOOD COUNT 4.7 4.5 - 11.0 thou/cu mm 08/21/2024 11:08 AM [facility] RED BLOOD COUNT 4.13 4.00 - 5.20 mil/cu mm 08/21/2024 11:08 AM [facility] HEMOGLOBIN 13.0 12.0 - 16.0 g/dL 08/21/2024 11:08 AM [facility] HEMATOCRIT 39.1 33.0 - 51.0 % 08/21/2024 11:08 AM [facility] MCV 95 80 - 100 fL 08/21/2024 11:08 AM [facility] MCH 31.5 26.0 - 34.0 pg 08/21/2024 11:08 AM [facility] MCHC 33.2 32.0 - 36.0 g/dL 08/21/2024 11:08 AM [facility] RDW 14.4 11.5 - 15.5 % 08/21/2024 11:08 AM [facility] PLATELET COUNT 188 140 - 440 thou/cu mm 08/21/2024 11:08 AM [facility] MPV 10.1 6.5 - 11.0 fL 08/21/2024 11:08 AM [facility] % NEUT 58.5 % 08/21/2024 11:08 AM [facility] % LYMPH 31.8 % 08/21/2024 11:08 AM [facility] % MONO 6.8 % 08/21/2024 11:08 AM [facility] % EOS 2.1 % 08/21/2024 11:08 AM [facility] % BASO 0.8 % 08/21/2024 11:08 AM [facility] ABSOLUTE NEUTROPHILS 2.8 1.7 - 7.0 thou/cu mm 08/21/2024 11:08 AM [facility] ABSOLUTE LYMPHOCYTES 1.5 0.9 - 2.9 thou/cu mm 08/21/2024 11:08 AM [facility] ABSOLUTE MONOCYTES 0.3 <0.9 thou/cu mm 08/21/2024 11:08 AM [facility] ABSOLUTE EOSINOPHILS 0.1 <0.5 thou/cu mm 08/21/2024 11:08 AM [facility] ABSOLUTE BASOPHILS 0.0 <0.3 thou/cu mm 08/21/2024 11:08 AM [facility] Blood BLOOD SPECIMEN / Unknown Venipuncture / Unknown 08/21/2024 11:05 AM [facility] 08/21/2024 11:05 AM [facility] - 08/21/2024 11:08 AM [facility] This procedure was originally ordered at [facility]. This procedure was originally ordered at [facility]. us Carolynn Crawford MD HEMATOLOGY Final Resu lt [facility] [address] [place], [place] [id number] * (ABNORMAL) IMMUNOGLOBULINS FREE LT CHAIN SERUM (08/21/2024 11:05 AM [facility]) KAPPA FREE LIGHT CHAIN, S 2.98(H) 0.33 - 1.94 mg/dL 08/22/2024 10:12 AM [facility] LAMBDA FREE LIGHT CHAIN, S 1.90 0.57 - 2.63 mg/dL 08/22/2024 10:12 AM BUILDING CLEANER [facility] KAPPA/LAMBDA FLC RATIO 1.57 0.26 - 1.65 08/22/2024 10:12 AM BUILDING CLEANER [facility] Blood BLOOD SPECIMEN / Unknown Venipuncture / Unknown 08/21/2024 11:05 AM BUILDING CLEANER 08/21/2024 11:05 AM BUILDING CLEANER Carolynn Crawford MD SEND OUTS Final Resu lt Performing Organization Address City/[facility]/ZIP Co de Phone Number [facility] [address] [phone], [place] * IGG (08/21/2024 11:05 AM BUILDING CLEANER) IGG 1,204.30 610.30 - 1,616.00 mg/dL 08/22/2024 10:06 AM BUILDING CLEANER [facility] Blood BLOOD SPECIMEN / Unknown Venipuncture / Unknown 08/21/2024 11:05 AM BUILDING CLEANER 08/21/2024 11:05 AM BUILDING CLEANER Carolynn Crawford MD CHEMISTRY Final Resu lt [facility] [address] [place] [address], [place] * (ABNORMAL) PROTEIN ELP,SERUM (08/21/2024 11:05 AM BUILDING CLEANER) ELP,ALBUMIN 3.78 3.31 - 5.31 g/dL 08/22/2024 11:39 AM BUILDING CLEANER [facility] ELP,ALPHA 1 0.26 0.19 - 0.42 g/dL 08/22/2024 11:39 AM BUILDING CLEANER [facility] ELP,ALPHA 2 0.52 0.44 - 1.03 g/dL 08/22/2024 11:39 AM BUILDING CLEANER [facility] ELP,GAMMA 1.24 0.59 - 1.46 g/dL 08/22/2024 11:[address] [facility] ELP,BETA 0.81 0.52 - 1.05 g/dL 08/22/2024 11:[address] [facility] MONOCLONAL PEAK 1 0.16 <=0.00 g/dL 08/22/2024 11:39 AM [facility] MONOCLONAL PEAK 2 0.07 <=0.00 g/dL 08/22/2024 11:[address] [facility] ELP INTERP,SERUM Interval study shows essentially no change in magnitude of previously identified monoclonal peak. Previous Study: 0.16/0.10 gm/dL on 03/22/2024. Interpreted and electronically signed by: Mal Gates MD 08/22/2024 11:[address] [facility] PROTEIN,TOTAL 6.6 6.0 - 8.0 g/dL 08/22/2024 11:[address] [facility] Blood BLOOD SPECIMEN / Unknown Venipuncture / Unknown 08/21/2024 11:05 AM BUILDING CLEANER 08/21/2024 11:05 AM [facility] us Carolynn Crawford MD CHEMISTRY Final Resu lt [facility] [address] [place] [address], * (ABNORMAL) COMP METABOLIC PANEL (08/21/2024 11:05 AM [facility]) SODIUM 140 136 - 145 mmol/L 08/21/2024 11:28 AM [facility] POTASSIUM 3.8 3.5 - 5.1 mmol/L 08/21/2024 11:28 AM [facility] CHLORIDE 107 98 - 107 mmol/L 08/21/2024 11:28 AM [facility] CO2,TOTAL 22 22 - 29 mmol/L 08/21/2024 11:28 AM [facility] ANION GAP 11 5 - 18 08/21/2024 11:28 AM [facility] GLUCOSE 79 70 - 99 mg/dL 08/21/2024 11:28 AM [facility] CALCIUM 9.3 8.8 - 10.4 mg/dL 08/21/2024 11:28 AM [facility] Comment: Reference ranges for this test were updated on 06/12/2024 to reflect our healthy population more accurately. Reference range changes are not retroactively applied to results, but previous results using the same methodology can be interpreted in the context of the new reference range. BUN 13 8 - 23 mg/dL 08/21/2024 11:28 AM [facility] CREATININE 0.62 0.50 - 0.90 mg/dL 08/21/2024 11:28 AM [facility] BUN/CREAT RATIO 21(H) 10 - 20 11:28 AM [facility] eGFR >90 >90 mL/min/1. 73m2 08/21/2024 11:28 AM [facility] Comment:As of 2021, eG FR is calculated by the CKD-EPI creatinine equation without race adjustment. eGFR can be influenced by muscle mass, exercise, and diet. The reported eGFR is an estimation only and is only applicable if the renal function is stable. ALBUMIN 3.9(L) 4.0 - 4.9 g/dL 08/21/2024 11:28 AM [facility] PROTEIN,TOTAL 6.8 6.0 - 8.0 g/dL 08/21/2024 11:28 AM [facility] BILIRUBIN,TOTAL 0.9 0.0 - 1.2 mg/dL 08/21/2024 11:28 AM [facility] ALK PHOSPHATASE 73 35 - 104 IU/L 08/21/2024 11:28 AM [facility] ALT (SGPT) 44(H) 10 - 35 IU/L 08/21/2024 11:28 AM [facility] AST (SGOT) 60(H) 10 - 35 IU/L 08/21/2024 11:28 AM [facility] Blood BLOOD SPECIMEN / Unknown Venipuncture / Unknown 08/21/2024 11:05 AM BUILDING CLEANER 08/21/2024 11:05 AM BUILDING CLEANER us Carolynn Crawford MD CHEMISTRY Final Resu lt [facility] [address] [place] [address] * (ABNORMAL) HEPATIC FUNCTION PANEL (08/09/2024 10:09 AM BUILDING CLEANER) ALBUMIN 4.0 4.0 - 4.9 g/dL 08/09/2024 4:59 PM BUILDING CLEANER [facility] PROTEIN,TOTAL 7.0 6.0 - 8.0 g/dL 08/09/2024 4:59 PM BUILDING CLEANER [facility] BILIRUBIN,TOTAL 0.5 0.0 - 1.2 mg/dL 08/09/2024 4:59 PM BUILDING CLEANER [facility] BILIRUBIN,DIRECT 0.3(H) 0.0 - 0.2 mg/dL 08/09/2024 4:59 PM BUILDING CLEANER [facility] BILIRUBIN,INDIRE CT 0.2 0.2 - 0.8 mg/dL 08/09/2024 4:59 PM BUILDING CLEANER [facility] ALK PHOSPHATASE 74 35 - 104 IU/L 08/09/2024 4:59 PM BUILDING CLEANER [facility] ALT (SGPT) 35 10 - 35 IU/L 08/09/2024 4:59 PM BUILDING CLEANER [facility] AST (SGOT) 41(H) 10 - 35 IU/L 08/09/2024 4:59 PM BUILDING CLEANER [facility] Blood BLOOD SPECIMEN / Unknown [facility] / Unknown 08/09/2024 10:09 AM BUILDING CLEANER 08/09/2024 10:10 AM BUILDING CLEANER Miguel Angel Faust MD CHEMISTRY Fin al Result [facility] [address] [place] [address], [place] * C-REACTIVE PROTEIN (08/09/2024 9:58 AM BUILDING CLEANER) C-REACTIVE PROTEIN <3.0 <8.0 mg/L [facility] Blood BLOOD SPECIMEN / Unknown 08/09/2024 9:58 AM BUILDING CLEANER 08/09/2024 9:59 AM BUILDING CLEANER Miguel Angel Faust MD CHEMISTRY Fin al Result [employer] [facility] [address] [place] [address], [facility] [address] [place] [address] * CBC AND DIFFERENTIAL (08/09/2024 9:57 AM BUILDING CLEANER) WHITE BLOOD CELL COUNT 5.6 3.8 - 10.8 Thousand/u L [facility] [place] RED BLOOD CELL COUNT 4.49 3.80 - 5.10 Million/uL [facility] [place] HEMOGLOBIN 14.2 11.7 - 15.5 g/dL [facility] [place] HEMATOCRIT 42.4 35.0 - 45.0 % [facility] [place] MCV 94.4 80.0 - 100.0 fL [facility] [place] MCH 31.6 27.0 - 33.0 pg [facility] [place] MCHC 33.5 32.0 - 36.0 g/dL [facility] [place] Comment: For adults, a slight decrease in the calculated MCHC value (in the range of 30 to 32 g/dL) is most likely not clinically significant; however, it should be interpreted with caution in correlation with other red cell parameters and the patient's clinical condition. RDW 14.4 11.0 - 15.0 % [facility] [place] PLATELET COUNT 173 140 - 400 Thousand/u L [facility] MPV 9.6 7.5 - 12.5 fL [facility] [place] ABSOLUTE NEUTROPHILS 3,108 1,500 - 7,800 cells/uL [facility] [place]) ABSOLUTE LYMPHOCYTES 1,658 850 - 3,900 cells/uL [facility] [place]) ABSOLUTE MONOCYTES 683 200 - 950 cells/uL [facility] [place]) ABSOLUTE EOSINOPHILS 112 15 - 500 cells/uL [facility] [place]) ABSOLUTE BASOPHILS 39 0 - 200 cells/uL [facility] [place]) NEUTROPHILS 55.5 % [facility] [place] LYMPHOCYTES 29.6 % [facility] [place] MONOCYTES 12.2 % [facility] [place]) EOSINOPHILS 2.0 % [facility] [place] BASOPHILS 0.7 % [facility] [place] Blood BLOOD SPECIMEN / Unknown 08/09/2024 9:57 AM BUILDING CLEANER 08/09/2024 9:57 AM BUILDING CLEANER Miguel Angel Faust MD HEMATOLOGY Fin al Result Performing Organization Address City/[facility] Co de Phone Number [facility] [address] [place] [address], [facility] (Urgent [facility]) [address] [place] [phone] * BASIC METABOLIC PANEL (08/09/2024 12:00 AM BUILDING CLEANER) GLUCOSE TNP mg/dL [facility] Comment: TEST NOT PERFORMED The additional test requested cannot be performed due to age of the specimen. Blood BLOOD SPECIMEN / Unknown 08/09/2024 08/13/2024 12:31 PM BUILDING CLEANER Miguel Angel Faust MD CHEMISTRY Fin al Result [employer] [facility] [address] [place] [address], [facility] [address] [place] [address] * XR DXA BONE DENSITY 2 SITES AXIAL (04/12/2024 10:09 AM CDT) Anatomical Region Laterality Modality Spine, HIPS, HIPL, HIPR Other Impressions 04/13/2024 8:32 AM CDT Osteopenia. RECOMMENDATIONS: The National Osteoporosis Foundation recommends pharmacologic treatment for patients with T-scores of -2.5 or less, patients with prior history of fragility fractures, or patients with 10-year probability of greater than 3% at hips or greater than 20% of suffering major osteoporotic fractures. Recommend continued optimization of calcium and vitamin D intake through dietary means and/or supplementation and regular exercise. Mike Rodriguez M.D. Diagnostic/Neuroradiologist [email or web address] Narrative 04/13/2024 8:32 AM CDT For Patients: Results are automatically released to your [employer] account once available, in compliance with federal regulations. This means that you may see your results before your provider has had a chance to review them. Please allow 2-3 business days for your provider to comment on the results. XR DXA Bone Mineral Density (BMD) EXAM LOCATION: [facility] [address] [place], [place] [id number] PATIENT NAME: Elo Ivey DATE OF : 1945 EXAM DATE: 04/12/2024 REQUESTING PROVIDER: Miguel Angel Faust MD GENDER AT : female HEIGHT: 5 feet 3 inches WEIGHT: 135 pounds MENOPAUSAL STATUS: Postmenopausal RACE/ETHNICITY: White RISK FACTORS: Family History of Osteoporosis, Smoking (prior), and White Race CURRENT MEDICATION FOR BONE LOSS: NONE INDICATION: Osteoporosis, unspecified osteoporosis type, unspecified pathological fracture presence; Multiple fractures COMPARISON DATE(S): None DXA scans are compared to prior studies for a patient only when the two (or more) studies were performed on the same scanner. It is not possible to compare data generated on one scanner to data from another because there are not standards in DXA equipment. This applies even if the two scanners are made by the same risk management analyst. PROCEDURE: Dual-energy x-ray absorptiometry performed with routine technique. Reporting is completed in the form of a T-score. The T-score represents the standard deviation from peak bone mass based on young healthy adult. A Z-score is used for diagnosis in premenopausal women, and for men under the age of 50. FINDINGS: RESULT LUMBAR SPINE L1 - L4 BMD: 1.035 g/cm2 T-Score: - 0.1 Z-Score: + 2.4 RESULTS FEMUR Left femoral neck BMD: 0.593 g/cm2 T-Score: - 2.3 Z-Score: - 0.2 Left total hip BMD: 0.765 g/cm2 T-Score: - 1.5 Z-Score: + 0.4 Right femoral neck BMD: 0.593 g/cm2 T-Score: - 2.3 Z-Score: - 0.2 Right total hip BMD: 0.746 g/cm2 T-Score: - 1.6 Z-Score: + 0.3 WHO criteria: Normal: T-score at or above -1 SD Osteopenia: T-score between -1.1 and -2.4 SD Osteoporosis: T-score at or below -2.5 SD LEFT: FRAX RISK CALCULATION (USED FOR OSTEOPENIA ONLY): 10-year probability of major osteoporotic fracture: 15%. 10-year probability of hip fracture: 4.5%. RIGHT: FRAX RISK CALCULATION (USED FOR OSTEOPENIA ONLY): 10-year probability of major osteoporotic fracture: 15%. 10-year probability of hip fracture: 4.5%. us Miguel Angel Faust MD DEXA Fin al Result * ANTI HCV (03/22/2024 11:25 AM CDT) Pathologist [facility] [place] HEPATITIS C ANTIBODY Non-Reacti ve Non-React codey 03/22/2024 5:54 PM CDT [facility] Comment:Please note, per www .CDC.gov: If a patient is known to be at high risk of HCV infection, or is symptomatic, and the physician's suspicion of HCV infection is high, HCV RNA testing is often employed and is of diagnostic value, even after an initial negative anti-HCV test result. Blood BLOOD SPECIMEN / Unknown Venipuncture / Unknown 03/22/2024 11:25 AM CDT 03/22/2024 11:35 AM CDT us Miguel Angel Faust MD SEND OUTS Fin al Result [facility] 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
--- OUTSIDE RECORDS SUMMARY | 2024-08-24 18:48 | XMS_ITS | Continuity of Care Document ---
Author Organization [facility] Address [address] [place] [address] Phone Care Team Providers Care Washhouse Worker Name Role Phone Deangelo Heaton MD Unavailable Unavailable Allergies, Adverse Reactions, Alerts Substance Reaction Status Criticality No Known Allergies Active No Inform ation Medications Medication Instructions Dosage Effective Dates (start - stop) Status Comments methotrexate sodium 2.5 mg tablet TAKE 6 [...] Tab take one tablet daily - Active Methotrexate Sodium 2.5 MG Oral Tablet TAKE [...] [facility] , [address], [place], [address], [place] tel:[phone] Arthritis Counselor No Information 4 Florina Bright. [facility] [address], [place], [address], [place]. tel:[phone] [facility] , [address], [place], [address], [place] tel:[phone] [facility] , No Information 4 Florina Bright. [facility] [address], [place], [address], [place]. tel:[phone] Office/Outpa tient Visit, Est [facility] , [address], [place], [address], [place] tel:[phone] [facility] , Rheumatoid arthritis (chief complaint) Seropositive RAOsteoporos is NOSElevated liver enzymesCouns elingHigh risk medication monitoring 4 Florina Bright. [facility] [address], [place], [address], [place]. tel:[phone] Referring Provider: Deangelo Queen, [facility] [address], [place], [address]. tel:[phone] Office/Outpa tient Visit, Est [facility] , [address], [place], [address], [place] tel:[phone] [facility] , Rheumatoid arthritis (chief complaint) Seropositive RAOsteoporos is NOSElevated liver enzymesCouns elingHigh risk medication monitoring 4 Florina Bright. [facility] [address], [place], [address], [place]. tel:[phone] Referring Provider: Deangelo Queen, [facility] [address], [place], [address]. tel:[phone] Office/Outpa tient Visit, Est [facility] , [address], [place], [address], [place] tel:[phone] [facility] , Rheumatoid arthritis (chief complaint) Seropositive RAOsteoporos is NOSElevated liver enzymesCouns elingHigh risk medication monitoring 3 Florina Bright. [facility] [address], [place], [address], [place]. tel:[phone] Referring Provider: Deangelo Queen, [facility] [address], [place], [address]. tel:[phone] Office/Outpa tient Visit, Est [facility] , [address], [place], [address], [place] tel:[phone] [facility] , Rheumatoid arthritis (chief complaint) Seropositive RAOsteoporos is NOSElevated liver enzymesCouns elingHigh risk medication monitoring 3 Florina Bright. [facility] [address], [place], [address], [place]. tel:[phone] Referring Provider: Deangelo Queen, [facility] [address], [place], [address]. tel:[phone] Office/Outpa tient Visit, Est [facility] , [address], [place], [address], [place] tel:[phone] [facility] , Rheumatoid arthritis (chief complaint) Seropositive RAOsteoporos is NOSElevated liver enzymesCouns elingHigh risk medication monitoring 3 Florina Bright. [facility] [address], [place], [address], [place]. tel:[phone] Referring Provider: Deangelo Queen, [facility] [address], [place], [address]. tel:[phone] Office/Outpa tient Visit, Est [facility] , [address], [place], [address], [place] tel:[phone] [facility] , Rheumatoid arthritis (chief complaint) Seropositive RAOsteoporos is NOSElevated liver enzymesCouns elingHigh risk medication monitoring 2 Florina Bright. [facility] [address], [place], [address], [place]. tel:[phone] Referring Provider: Deangelo Queen, [facility] [address], [place], [address]. tel:[phone] Office/Outpa tient Visit, Est [facility] , [address], [place], [address], [place] tel:[phone] [facility] , Rheumatoid arthritis (chief complaint) Seropositive RAOsteoporos is NOSElevated liver enzymesHigh risk medication monitoringCo unseling 2 Florina Bright. [facility] [address], [place], [address], [place]. tel:[phone] Referring Provider: Deangelo Queen, [facility] [address], [place], [address]. tel:[phone] Office/Outpa tient Visit, Est [facility] , [address], [place], [address], [place] tel:[phone] [facility] , Rheumatoid arthritis (chief complaint) Seropositive RAOsteoporos is NOSElevated liver enzymesHigh risk medication monitoringCo unseling Phillip- 2 Florina Bright. [facility] [address], [place], [address], [place]. tel:[phone] Referring Provider: Deangelo Queen, [facility] [address], [place], [address]. tel:[phone] Office/Outpa tient Visit, Est [facility] , [address], [place], [address], [place] tel:[phone] [facility] , Rheumatoid arthritis (chief complaint) Seropositive RAOsteoporos is NOSElevated liver enzymesHigh risk medication monitoringCo unselingCram p Apr- 1 Florina Bright. [facility] [address], [place], [address], [place]. tel:[phone] Referring Provider: Deangelo Queen, [facility] [address], [place], [address]. tel:[phone] Office/Outpa tient Visit, Est [facility] , [address], [place], [address], [place] tel:[phone] [facility] , Rheumatoid arthritis (chief complaint) Seropositive RAOsteoporos is NOSElevated liver enzymesHigh risk medication monitoringCo unseling Matthew- 1 Florina Bright. [facility] [address], [place], [address], [place]. tel:[phone] Referring Provider: Deangelo Queen, [facility] [address], [place], [address]. tel:[phone] Office/Outpa tient Visit, Est [facility] , [address], [place], [address], [place] tel:[phone] [facility] , Rheumatoid arthritis (chief complaint) Seropositive RAOsteoporos is NOSElevated liver enzymesHigh risk medication monitoringCo unseling Oct- 1 Florina Bright. [facility] [address], [place], [address], [place]. tel:[phone] Referring Provider: Deangelo Queen, [facility] [address], [place], [address]. tel:[phone] Office/Outpa tient Visit, Est [facility] , [address], [place], [address], [place] tel:[phone] [facility] , Rheumatoid arthritis (chief complaint) Seropositive RAOsteoporos is NOSElevated liver enzymesHigh risk medication monitoring Nov-0 0 Florina Bright. [facility] [address], [place], [address], [place]. tel:[phone] Referring Provider: Deangelo Queen, [facility] [address], [place], [address]. tel:[phone] Office/Outpa tient Visit, Est [facility] , [address], [place], [address], [place] tel:[phone] [facility] , Rheumatoid arthritis (chief complaint) Seropositive RAOsteoporos is NOSElevated liver enzymesHigh risk medication monitoring Nate-0 6-202 0 Florina Bright. [facility] [address], [place], [address], [place]. tel:[phone] Referring Provider: Deangelo Queen, [facility] [address], [place], [address]. tel:[phone] Office/Outpa tient Visit, Est [facility] , [address], [place], [address], [place] tel:[phone] [facility] , Rheumatoid arthritis (chief complaint) Seropositive RAOsteoporos is NOSElevated liver enzymesHigh risk medication monitoring 7-202 0 Florina Bright. [facility] [address], [place], [address], [place]. tel:[phone] Referring Provider: Deangelo Queen, [facility] [address], [place], [address]. tel:[phone] Office/Outpa tient Visit, Est [facility] , [address], [place], [address], [place] tel:[phone] [facility] , Rheumatoid arthritis (chief complaint) Seropositive RAOsteoporos is NOSHigh risk medication monitoringEl evated liver enzymes Sep-3 0-201 9 Florina Bright. [facility] [address], [place], [address], [place]. tel:[phone] Referring Provider: Deangelo Queen, [facility] [address], [place], [address]. tel:[phone] Office/Outpa tient Visit, Est [facility] , [address], [place], [address], [place] tel:[phone] [facility] , Rheumatoid arthritis (chief complaint) Seropositive RAOsteoporos is NOSHigh risk medication monitoring 9 [facility] Deangelo. [facility] [address], [place], [address], [place]. tel:[phone] Referring Provider: Deangelo Queen, [facility] [address], [place], [address]. tel:[phone] Office/Outpa tient Visit, Est [facility] , [address], [place], [address], [place] tel:[phone] [facility] , Rheumatoid arthritis (chief complaint) Seropositive RAOsteoporos is NOSHigh risk medication monitoring 8 [facility] Deangelo. [facility] [address], [place], [address], [place]. tel:[phone] Referring Provider: Deangelo Queen, [facility] [address], [place], [address]. tel:[phone] Office/Outpa tient Visit, Est [facility] , [address], [place], [address], [place] tel:[phone] [facility] , Rheumatoid arthritis (chief complaint) Seropositive RAOsteoporos is NOSHigh risk medication monitoring 8 Florina Deangelo. [facility] [address], [place], [address], [place]. tel:[phone] Referring Provider: Deangelo Queen, [facility] [address], [place], [address]. tel:[phone] Office/Outpa tient Visit, Est [facility] , [address], [place], [address], [place] tel:[phone] [facility] , Rheumatoid arthritis (chief complaint) Seropositive RAOsteoporos is NOSHigh risk medication monitoring 8 Florina Bright. [facility] [address], [place], [address], [place]. tel:[phone] Referring Provider: Deangelo Queen, [facility] [address], [place], [address]. tel:[phone] Office/Outpa tient Visit, Est [facility] , [address], [place], [address], [place] tel:[phone] [facility] , Rheumatoid arthritis (chief complaint) Seropositive RAOsteoporos is NOSHigh risk medication monitoring 7 Florina Bright. [facility] [address], [place], [address], [place]. tel:[phone] Referring Provider: Deangelo Queen, [facility] [address], [place], [address]. tel:[phone] Office/Outpa tient Visit, Est [facility] , [address], [place], [address], [place] tel:[phone] [facility] , Rheumatoid arthritis (chief complaint) Seropositive RAOsteoporos is NOSHigh risk medication monitoring 7 Florina Bright. [facility] [address], [place], [address], [place]. tel:[phone] Referring Provider: Deangelo Queen, [facility] [address], [place], [address]. tel:[phone] Office/Outpa tient Visit, Est [facility] , [address], [place], [address], [place] tel:[phone] [facility] , Rheumatoid arthritis (chief complaint) Seropositive RAOsteoporos is NOSHigh risk medication monitoring 7 Florina Bright. [facility] [address], [place], [address], [place]. tel:[phone] Referring Provider: Deangelo Queen, [facility] [address], [place], [address]. tel:[phone] Office/Outpa tient Visit, Est [facility] , [address], [place], [address], [place] tel:[phone] [facility] , Rheumatoid arthritis (chief complaint) Seropositive RAOsteoporos is NOSHigh risk medication monitoring 6 Florina Bright. [facility] [address], [place], [address], [place]. tel:[phone] Referring Provider: Deangelo Queen, [facility] [address], [place], [address]. tel:[phone] Office/Outpa tient Visit, Est [facility] , [address], [place], [address], [place] tel:[phone] [facility] , Rheumatoid arthritis (chief complaint) Seropositive RAOsteoporos is NOSHigh risk medication monitoring 6 [facility] Deangelo. [facility] [address], [place], [address], [place]. tel:[phone] Referring Provider: Deangelo Queen, [facility] [address], [place], [address]. tel:[phone] Office/Outpa tient Visit, Est [facility] , [address], [place], [address], [place] tel:[phone] [facility] , Rheumatoid arthritis (chief complaint) Seropositive RAOsteoporos is NOSHigh risk medication monitoring 6 [facility] Deangelo. [facility] [address], [place], [address], [place]. tel:[phone] Referring Provider: Deangelo Queen, [facility] [address], [place], [address]. tel:[phone] [facility] , [address], [place], [address], [place] tel:[phone] [facility] , Osteoporosis NOS 6 [facility] Deangelo. [facility] [address], [place], [address], [place]. tel:[phone] Referring Provider: Deangelo Queen, [facility] [address], [place], [address]. tel:[phone] Office/Outpa tient Visit, Est [facility] , [address], [place], [address], [place] tel:[phone] [facility] , Rheumatoid arthritis (chief complaint) Seropositive RATherapeuti c Drug MonitoringOs teoporosis Florina Bright. [facility] [address], [place], [address], [place]. tel:[phone] Referring Provider: Deangelo Queen, [facility] [address], [place], [address]. tel:[phone] Office/Outpa tient Visit, Est [facility] , [address], [place], [address], [place] tel:[phone] [facility] , Rheumatoid Arthritis (chief complaint) Rheumatoid ArthritisOst eoporosisThe rapeutic Drug Monitoring Florina Bright. [facility] [address], [place], [address], [place]. tel:[phone] Referring Provider: Deangelo Queen, [facility] [address], [place], [address]. tel:[phone] Office/Outpa tient Visit, Est [facility] , [address], [place], [address], [place] tel:[phone] [facility] , Rheumatoid Arthritis (chief complaint) Rheumatoid ArthritisThe rapeutic Drug MonitoringOs teoporosis Florina Bright. [facility] [address], [place], [address], [place]. tel:[phone] Referring Provider: Deangelo Queen, [facility] [address], [place], [address]. tel:[phone] Office/Outpa tient Visit, Est [facility] , [address], [place], [address], [place] tel:[phone] [facility] , Rheumatoid Arthritis (chief complaint) Rheumatoid ArthritisOst eoporosisThe rapeutic Drug Monitoring 4 Florina Bright. [facility] [address], [place], [address], [place]. tel:[phone] Referring Provider: Deangelo Queen, [facility] [address], [place], [address]. tel:[phone] Office/Outpa tient Visit, Est [facility] , [address], [place], [address], [place] tel:[phone] [facility] , Rheumatoid Arthritis (chief complaint) Rheumatoid ArthritisThe rapeutic Drug MonitoringOs teoporosisRa sh and other nonspecific skin eruption 3 Florina Bright. [facility] [address], [place], [address], [place]. tel:[phone] Referring Provider: Deangelo Queen, [facility] [address], [place], [address]. tel:[phone] [facility] , [address], [place], [address], [place] tel:[phone] [facility] , No Information 3 Florina Bright. [facility] [address], [place], [address], [place]. tel:[phone] Referring Provider: Deangelo Queen, [facility] [address], [place], [address]. tel:[phone] [facility] , [address], [place], [address], [place] tel:[phone] [facility] , No Information 3 Florina Bright. [facility] [address], [place], [address], [place]. tel:[phone] Referring Provider: Deangelo Queen, [facility] [address], [place], [address]. tel:[phone] Office/Outpa tient Visit, Est [facility] , [address], [place], [address], [place] tel:[phone] [facility] , Rheumatoid Arthritis (chief complaint) Rheumatoid ArthritisOst eoporosisThe rapeutic Drug Monitoring 3 Florina Bright. [facility] [address], [place], [address], [place]. tel:[phone] Referring Provider: Deangelo Queen, [facility] [address], [place], [address]. tel:[phone] Office/Outpa tient Visit, Est [facility] , [address], [place], [address], [place] tel:[phone] [facility] , Rheumatoid Arthritis (chief complaint) Rheumatoid ArthritisOst eoporosisThe rapeutic Drug MonitoringRa sh and other nonspecific skin eruption 2 Florina Bright. [facility] [address], [place], [address], [place]. tel:[phone] Referring Provider: Deangelo Queen, [facility] [address], [place], [address]. tel:[phone] Family History Family Member Type Diagnosis Age At Onset brother 1 Problem (finding) rheumatoid arthritis brother 2 Problem (finding) rheumatoid arthritis Immunizations Vaccine Date Status Comments COVID-19 Pfizer administered Note: 2020 ; Source: Other Provider Payers Payer name Insurance type Covered democrat ID Authoriza tion(s) [employer] Medicare Advantage/Pl[employer] Blue BL [id number] Social History Type Description Quantity Date Captured Comments Alcohol Use Details Unknown Caffeine Use Details Unknown Tobacco Use Status No Information Smoking Status No Information Sex Female Chief Complaint And Reason For Visit No Information Reason For Referral Reason For Referral No Information History Of Present Illness Encounter Date Complaint [...]
== END 2024-08-24 18:49 | disposition home or self-care (01) ==
LOC: ED 18:46
PROVIDERS: Emergency Provider Student in an Organized Health Care Education/Training Program; PCP Surgery
DX: M25.512 Pain in left shoulder (principal); W01.0XXA Fall on same level from slipping, tripping and stumbling without subsequent striking against object, initial encounter
CPT/HCPCS: 73060; 99283